=== PATIENT | female | born 1990 | race Caucasian/White ===

== ENCOUNTER → 2018-03-22 09:38 | Outpatient (CLI) | payer OTHER, SELFPAY ==
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
--- NOTE | 2018-03-22 10:50 | XR_ITS ---
XR foot wt bearing LT 3V, XR foot wt bearing RT 3V XR calcaneus LT min 2V, Ordering Physician: Estefania Kurtz Patient Age: 28 years: Female HISTORY: TECHNIQUE: Left foot 3 views weightbearing Right foot 3 views weightbearing Calcaneus 2 views COMPARISON :No previous ========= LEFT FOOT 3 VIEWS weightbearing, CALCANEUS 2 VIEWS The left foot reveals no definitive fracture. No displaced fracture appreciated at calcaneus Outside [facility] CT question possible fracture at the sustentaculum yomi but this is not clearly apparent on plain film... Only questionable area at the base of sustentaculum and at its tip seen on tangential view calcaneus. We will await outside studies from [facility] to compare Again the small os trigonum noted posterior aspect of talus. Scant spurring at insertion of Achilles tendon noted subtalar joint unremarkable on these views plain film views. IMPRESSION No displaced fractures are evident. Anatomical relationships. [facility] noted a suspect fracture at the sustentaculum yomi. This is not really apparent only question some subtle irregularity at its medial tip and posterior subtle line through base of sustentaculum yomi. Equivocal on plain film. Awaiting outside studies for comparison ======== RIGHT FOOT 3 VIEWS weightbearing The right foot appears fairly symmetrical to the left foot with metatarsals and carpals unremarkable. Adequate plantar ca arch bilateral there Slightly blunted flattened appearance of the distal tuft right great toe with a lucent corticated foramen towards the base the distal tuft. This may reflect old event trauma or congenital variation . IMPRESSION. No acute findings right foot. It appears intact =======
--- NOTE | 2018-03-22 10:51 | XR_ITS ---
XR foot wt bearing LT 3V, XR foot wt bearing RT 3V XR calcaneus LT min 2V, Ordering Physician: Estefania Kurtz Patient Age: 28 years: Female HISTORY: TECHNIQUE: Left foot 3 views weightbearing Right foot 3 views weightbearing Calcaneus 2 views COMPARISON :No previous ========= LEFT FOOT 3 VIEWS weightbearing, CALCANEUS 2 VIEWS The left foot reveals no definitive fracture. No displaced fracture appreciated at calcaneus Outside [facility] CT question possible fracture at the sustentaculum yomi but this is not clearly apparent on plain film... Only questionable area at the base of sustentaculum and at its tip seen on tangential view calcaneus. We will await outside studies from [facility] to compare Again the small os trigonum noted posterior aspect of talus. Scant spurring at insertion of Achilles tendon noted subtalar joint unremarkable on these views plain film views. IMPRESSION No displaced fractures are evident. Anatomical relationships. [facility] noted a suspect fracture at the sustentaculum yomi. This is not really apparent only question some subtle irregularity at its medial tip and posterior subtle line through base of sustentaculum yomi. Equivocal on plain film. Awaiting outside studies for comparison ======== RIGHT FOOT 3 VIEWS weightbearing The right foot appears fairly symmetrical to the left foot with metatarsals and carpals unremarkable. Adequate plantar ca arch bilateral there Slightly blunted flattened appearance of the distal tuft right great toe with a lucent corticated foramen towards the base the distal tuft. This may reflect old event trauma or congenital variation . IMPRESSION. No acute findings right foot. It appears intact =======
--- NOTE | 2018-03-22 10:51 | XR_ITS ---
XR foot wt bearing LT 3V, XR foot wt bearing RT 3V XR calcaneus LT min 2V, Ordering Physician: Estefania Kurtz Patient Age: 28 years: Female HISTORY: TECHNIQUE: Left foot 3 views weightbearing Right foot 3 views weightbearing Calcaneus 2 views COMPARISON :No previous ========= LEFT FOOT 3 VIEWS weightbearing, CALCANEUS 2 VIEWS The left foot reveals no definitive fracture. No displaced fracture appreciated at calcaneus Outside [facility] CT question possible fracture at the sustentaculum yomi but this is not clearly apparent on plain film... Only questionable area at the base of sustentaculum and at its tip seen on tangential view calcaneus. We will await outside studies from [facility] to compare Again the small os trigonum noted posterior aspect of talus. Scant spurring at insertion of Achilles tendon noted subtalar joint unremarkable on these views plain film views. IMPRESSION No displaced fractures are evident. Anatomical relationships. [facility] noted a suspect fracture at the sustentaculum yomi. This is not really apparent only question some subtle irregularity at its medial tip and posterior subtle line through base of sustentaculum yomi. Equivocal on plain film. Awaiting outside studies for comparison ======== RIGHT FOOT 3 VIEWS weightbearing The right foot appears fairly symmetrical to the left foot with metatarsals and carpals unremarkable. Adequate plantar ca arch bilateral there Slightly blunted flattened appearance of the distal tuft right great toe with a lucent corticated foramen towards the base the distal tuft. This may reflect old event trauma or congenital variation . IMPRESSION. No acute findings right foot. It appears intact =======
== END ==
PROVIDERS: PCP Internal Medicine Adolescent Medicine; Visit Provider Nurse Practitioner Family
DX: G89.11 Acute pain due to trauma (principal); S82.892D Other fracture of left lower leg, subsequent encounter for closed fracture with routine healing
CPT/HCPCS: 71101; 73030; 73610; 73630; 73650

== ENCOUNTER → 2018-04-06 08:31 | Outpatient (CLI) | payer OTHER, SELFPAY ==
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
== END ==
PROVIDERS: Visit Provider Podiatrist
DX: S82.892A Other fracture of left lower leg, initial encounter for closed fracture (principal); S92.002A Unspecified fracture of left calcaneus, initial encounter for closed fracture
CPT/HCPCS: 73610; 73650

== ENCOUNTER → 2018-04-27 08:19 | Outpatient (CLI) | payer OTHER, SELFPAY ==
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
== END ==
LOC: LAB 08:19 → RAD 08:24
PROVIDERS: Visit Provider Podiatrist
DX: T14.8XXA Other injury of unspecified body region, initial encounter (principal)
CPT/HCPCS: 73610; 73650

== ENCOUNTER 2018-05-14 08:30 | Outpatient (RCR) | payer OTHER, SELFPAY ==
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
== END 2018-05-14 08:31 | disposition home or self-care (01) ==
LOC: PT 08:30
PROVIDERS: Family Provider Internal Medicine Adolescent Medicine; PCP Internal Medicine Adolescent Medicine; Visit Provider Podiatrist
DX: S82.832D Other fracture of upper and lower end of left fibula, subsequent encounter for closed fracture with routine healing (principal)
CPT/HCPCS: 97010; 97014; 97016; 97110; 97140; 97163; G0283

== ENCOUNTER → 2018-07-05 09:01 | Outpatient (CLI) | payer OTHER, SELFPAY ==
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
== END ==
PROVIDERS: Family Provider Internal Medicine Adolescent Medicine; PCP Internal Medicine Adolescent Medicine; Visit Provider Podiatrist
DX: M25.572 Pain in left ankle and joints of left foot (principal)
CPT/HCPCS: 73223; A9576

== ENCOUNTER → 2018-07-09 10:46 | Outpatient (CLI) | payer OTHER, SELFPAY ==
[2018-07-09 10:48] LABS: Microscopic, Urine URINE MICROSCOPIC (MICROSCOPIC)
[2018-07-09 11:02] LABS: Appearance,Urine SL CLOUDY (Clear); Bilirubin,Urine Negative (Negative); Blood, Urine TRACE-L (Negative); Color,Urine YELLOW (Yellow); Glucose,Urine (UA) Negative (Negative); Ketones,Urine Negative (Negative); Leukocyte Esterase,Urine Negative (Negative); Nitrate,Urine Negative (Negative); Protein,Urine Negative (Negative); Specific Gravity, Urine 1.025 (1.005-1.030); Urobilinogen,Urine 0.2 EU/dl (0.2)
[2018-07-09 11:05] LABS: Urine Pregnancy, HCG Qual. Negative (Negative)
[2018-07-09 11:14] LABS: Basophils % 0.6 % (0.1-2.0); Eosinophils # 0.1 K/mm3 (0.0-0.4); Hematocrit 43.1 % (37.0-47.0); Hemoglobin 14.6 g/dL (12.2-16.2); Lymphocytes # 1.2 K/mm3 (0.7-4.5); Lymphocytes % 22.7 K/mm3 (10-50); Mean Corpuscular HGB Conc 33.9 g/dL (31.8-35.4); Mean Corpuscular Hemoglobin 29.5 pg (27.0-31.2); Mean Platelet Volume 8.2 fl (7.4-10.4); Monocytes # 0.3 K/mm3 (0.1-1.0); Monocytes % 5.6 % (1.7-9.3); Neutrophils # 3.8 K/mm3 (1.8-7.8); Platelet Count 255 K/mm3 (142-424); Red Blood Count 4.96 M/mm3 (4.20-5.40); Red Cell Distribution Width 12.6 % (11.5-17.5); White Blood Count 5.4 K/mm3 (4.8-10.8)
[2018-07-09 11:37] LABS: Bacteria,Urine Trace /lpf
[2018-07-09 12:51] LABS: Alanine Aminotransferase 20 U/L (12-78); Albumin Level 3.8 gm/dL (3.4-5.0); Albumin/Globulin Ratio 1.1 (1.1-1.8); Alkaline Phosphatase 69 U/L (46-116); Anion Gap 15.7 mEq/L (5-15); Aspartate Amino Transferase 12 U/L (15-37); Bilirubin,Total 0.2 mg/dL (0.2-1.0); Blood Urea Nitrogen 12 mg/dL (7-18); Calcium 9.2 mg/dL (8.5-10.1); Carbon Dioxide 25 mmol/L (21.0-32.0); Chloride 104 mmol/L (98-107); Creatinine,Serum 0.88 mg/dL (0.55-1.02); Estimated Glomerular Filt Rate 77 ml/min (>60); GFR (African American) 93 ML/MIN (>60); Globulin 3.6 gm/dl (1.3-3.2); Glucose 96 mg/dL (74-106); Potassium 4.7 mmoL/L (3.5-5.1); Sodium 140 mmol/L (136-145); Total Protein,Serum 7.4 gm/dL (6.4-8.2)
== END ==
PROVIDERS: Visit Provider Podiatrist
DX: Z01.818 Encounter for other preprocedural examination (principal); M25.372 Other instability, left ankle; M25.572 Pain in left ankle and joints of left foot; S93.432A Sprain of tibiofibular ligament of left ankle, initial encounter
CPT/HCPCS: 36415; 80053; 81001; 81025; 85025; 93005

== ENCOUNTER → 2018-07-27 08:52 | Outpatient (CLI) | payer OTHER, SELFPAY ==
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
== END ==
PROVIDERS: Visit Provider Podiatrist
DX: Z98.890 Other specified postprocedural states (principal)
CPT/HCPCS: 73610

== ENCOUNTER → 2018-08-10 12:03 | Outpatient (CLI) | payer OTHER, SELFPAY ==
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
== END ==
PROVIDERS: PCP Nurse Practitioner Family; Visit Provider Podiatrist
DX: Z98.890 Other specified postprocedural states (principal)
CPT/HCPCS: 73610

== ENCOUNTER → 2018-08-31 13:40 | Outpatient (CLI) | payer OTHER, SELFPAY ==
--- NOTE | 2018-08-31 13:41 | XR_ITS ---
XR ankle wt bearing LT min 3V HISTORY: Follow-up surgery ITS.REASON: Post-op views ORDERING PHYSICIAN: Hina Nunes DPM PATIENT AGE: 28 years Comparison: None FINDINGS: There remains good alignment with preservation of the ankle mortise. Bone plate along the distal fibula with translucent fixators to the medial aspect of the distal tibia once again noted. IMPRESSION: No change status post ORIF of tib-fib as described above
== END ==
PROVIDERS: Visit Provider Podiatrist
DX: Z98.890 Other specified postprocedural states (principal); S93.432A Sprain of tibiofibular ligament of left ankle, initial encounter
CPT/HCPCS: 73610

== ENCOUNTER 2018-10-11 10:30 | Outpatient (RCR) | payer OTHER, SELFPAY ==
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
--- NOTE | 2018-09-23 11:25 | HMH.RHREAS ---
Rehab Reassessment Rehab OP Re-assessment Start: 09/23/18 11:18 Freq: Status: Active Protocol: Document 09/23/18 11:22 ADELA (Rec: 09/23/18 11:25 PHOTAYA [id number]) Electronically Signed By Db Wise, PT 09/23/18 11:22 Rehab Re-assessment Subjective Subjective Pt reports feeling better overall, pain 1/10 currently and 5/10 at worst. Objective Objective Notes MMT: Left ankle grossly 4-/5 AROM Left ankle: DF= 0-5 deg, PF= 0-30 deg, INV= 0-20 deg, EVER= 0-8 deg. Assessment Progress Assessment Progressing as Expected Assessment Notes Much less tenderness to palpation, improving activity, stairs remain difficult, continues to need strengthening and AROM. Patient goals met ST,2,4,5,6,7,8 LT,4,5,6,7,8,9,10,[address] LT,2 Revised Goals none Plan Plan Continue per initial POC. Frequency of Therapy 2 x/wk Duration of therapy 8 wks Time and Billing Re-Eval Time 15 Re-Eval Billing Units 1 PHYSICIAN CERTIFICATION: I certify the specified therapy services for Jory Peguero are required, authorized, and reviewed every 30 days.
== END 2018-10-11 10:33 | disposition home or self-care (01) ==
LOC: PT 10:30
PROVIDERS: Visit Provider Podiatrist
DX: Z98.890 Other specified postprocedural states (principal); S93.432A Sprain of tibiofibular ligament of left ankle, initial encounter; M25.372 Other instability, left ankle; S93.422A Sprain of deltoid ligament of left ankle, initial encounter
CPT/HCPCS: 97010; 97014; 97016; 97033; 97035; 97110; 97112; 97163; 97164; G0283

== ENCOUNTER → 2018-10-12 13:50 | Outpatient (CLI) | payer OTHER, SELFPAY ==
--- NOTE | 2018-10-12 13:51 | XR_ITS ---
XR ankle wt bearing LT min 3V HISTORY: Follow-up surgery/ORIF ITS.REASON: post-op views ORDERING PHYSICIAN: Hina Nunes DPM PATIENT AGE: 28 years Comparison: 08/31/2018 FINDINGS: The talar dome has an unremarkable appearance. There remains good alignment with preservation of the ankle mortise. Bone plate along the distal fibula with translucent fixators to the medial aspect of the distal tibia once again noted. There is a cortical lucency involving the distal fibula having a round appearance and may be postsurgical in nature IMPRESSION: No change status post ORIF of tib-fib as described above with good alignment
== END ==
PROVIDERS: Visit Provider Podiatrist
DX: Z98.890 Other specified postprocedural states (principal)
CPT/HCPCS: 73610

== ENCOUNTER → 2020-01-03 15:52 | Outpatient (CLI) | payer OTHER, SELFPAY ==
--- NOTE | 2020-01-03 15:55 | XR_ITS ---
PROCEDURE: XR ANKLE WT BEARING LT MIN 3V CLINICAL INDICATION: ankle pain Left lateral ankle pain COMPARISON: [id number] XR ankle wt bearing LT min 3V from 07/27/2018 [id number] XR ankle wt bearing LT min 3V from 08/10/2018 [id number] XR ankle wt bearing LT min 3V from 08/31/2018 FINDINGS: Status post prior syndesmotic repair with lateral bone plate of the distal fibula and 2 translucent fixators to the distal tibia. Ankle mortise is preserved. No fracture or dislocation or other significant anomaly. IMPRESSION: Prior ORIF distal tib fib with good alignment otherwise negative Dictated by: Ari Obrien MD 01/03/2020 16:26 Electronically signed by Ari Obrien MD in [place] 01/03/2020 16:26
== END ==
PROVIDERS: PCP Nurse Practitioner Family; Visit Provider Podiatrist
DX: M25.572 Pain in left ankle and joints of left foot (principal)
CPT/HCPCS: 73610

== ENCOUNTER → 2020-05-01 10:51 | Outpatient (CLI) | payer OTHER, SELFPAY ==
[2020-05-01 12:10] LABS: HCG,Quantitative 1474 mIU/ml (0-5.42)
== END ==
PROVIDERS: Visit Provider Nurse Practitioner Obstetrics & Gynecology
DX: Z32.00 Encounter for pregnancy test, result unknown (principal)
CPT/HCPCS: 36415; 84702

== ENCOUNTER → 2020-05-16 09:07 | Outpatient (CLI) | payer OTHER, SELFPAY ==
--- NOTE | 2020-05-16 09:08 | US_ITS ---
PROCEDURE: US OB TRANSVAGINAL CLINICAL INDICATION: for dates COMPARISON: No exams were available for comparison FINDINGS: An intrauterine gestational sac is present with a pole with a crown-rump length of 0.88cm correlating to gestational age of 7weeks. heart tones are present with an FHR of 130bpm. Yolk sac is noted. Both ovaries display multiple small peripheral cortical cysts consistent with probable polycystic ovarian disease. The right ovary measures 39 millimeters x 32 millimeters x 37 millimeters. Left ovary measures 29 millimeters X 21 millimeters. There is a 15 millimeter right ovarian cystic lesion with peripheral hypervascularity noted. IMPRESSION: Seven week IUP, possible polycystic ovarian disease, right corpus luteum cyst Estimated due date by Ultrasound is 01/02/2021 Dictated by: Javed Rodriguez 05/16/2020 12:02 Electronically signed by Javed Rodriguez in [place] 05/16/2020 12:02
== END ==
PROVIDERS: PCP Internal Medicine Adolescent Medicine; Visit Provider Nurse Practitioner Obstetrics & Gynecology
DX: Z34.90 Encounter for supervision of normal pregnancy, unspecified, unspecified trimester (principal)
CPT/HCPCS: 76817

== ENCOUNTER → 2020-06-05 11:40 | Outpatient (CLI) | payer OTHER, SELFPAY ==
[2020-06-05 12:36] LABS: Basophils % 0.2 % (0.1-2.0); Eosinophils # 0.1 K/mm3 (0.0-0.4); Eosinophils % 0.8 % (0.1-12.0); Hematocrit 39.3 % (37.0-47.0); Hemoglobin 13.7 g/dL (12.2-16.2); Lymphocytes # 1.4 K/mm3 (0.7-4.5); Lymphocytes % 20.4 % (10-50); Mean Corpuscular HGB Conc 34.8 g/dL (31.8-35.4); Mean Corpuscular Hemoglobin 31.1 pg (27.0-31.2); Mean Corpuscular Volume 89.4 fl (81-99); Mean Platelet Volume 8.5 fl (7.4-10.4); Monocytes # 0.4 K/mm3 (0.1-1.0); Monocytes % 5.6 % (1.7-9.3); Neutrophils # 5.1 K/mm3 (1.8-7.8); Neutrophils % 73.1 % (37.0-80.0); Platelet Count 239 K/mm3 (142-424); Red Cell Distribution Width 13.2 % (11.5-17.5); White Blood Count 6.9 K/mm3 (4.8-10.8)
[2020-06-06 11:59] LABS: HIV Screen 4th Generation wRfx Non Reactive (Non Reactive)
[2020-06-06 15:27] LABS: Hepatitis B Surface Antigen Negative (Negative); Hepatitis C Antibody <0.1 s/co ratio (0.0-0.9); Rapid Plasma Reagin Ab Titer Non Reactive (NonRea<1:1)
[2020-06-07 08:37] LABS: Rubella Antibodies, IgG 2.16 index (Immune >0.99)
== END ==
PROVIDERS: Visit Provider Nurse Practitioner Obstetrics & Gynecology
DX: Z34.90 Encounter for supervision of normal pregnancy, unspecified, unspecified trimester (principal); Z3A.01 Less than 8 weeks gestation of pregnancy
CPT/HCPCS: 36415; 85025; 86592; 86703; 86762; 86850; 87340; 87380; G0432

== ENCOUNTER → 2020-08-16 08:48 | Outpatient (CLI) | payer OTHER, SELFPAY ==
--- NOTE | 2020-08-16 08:49 | US_ITS ---
PROCEDURE: US OB /MATERNAL DETAIL CLINICAL INDICATION: 20 week gestation Anatomy exam COMPARISON: US US OB TRANSVAGINAL from 05/16/2020 FINDINGS: There is a single live fetus which is in cephalic presentation. heart and body and motion noted. The cervix is closed and measures 3 cm. The placenta is anterior and grade 1 Complete survey performed and was unremarkable on the submitted images as in PACS. No discrete anomalies identified on survey imaging by technologist. Active fetus. Three-vessel cord with satisfactory umbilical cord insertion. 4- chamber heart noted. Survey of brain & ventricles Unremarkable. Face and neck survey unremarkable. Diaphragm and chest views unremarkable. Abdomen: Both kidneys noted and unremarkable. Stomach noted and satisfactory. Spine: Survey of the spine satisfactory with no anomalies identified nor imaged. Both arms and legs noted. Amniotic Fluid: Adequate. Maternal adnexa: No significant findings. Measurements: Average ultrasound age 20weeks 2days. Gestational Age 20weeks 1day Estimated due date by ultrasound age 0201/01/2021. Estimated weight 348g BPD = 20weeks OFD = 20weeks 6days HC = 19weeks 6days AC = 20weeks 3days FL = 20weeks 4days Growth Percentile= 57Percent% Heart Rate = 144bpm Cerebellum = 19weeks 6days Humerus = 20weeks 4days HC/AC is 1.13 CI is 0.74 FL/BPD is 0.73 FL/AC is 0.22 IMPRESSION: Live IUP in cephalic presentation with an average ultrasound age of 20 weeks and 2 days. No obvious anomalies. Please see above for detail Dictated by: Ari Obrien MD 08/18/2020 08:45 Ari Obrien MD in [place] 08/18/2020 08:45
== END ==
PROVIDERS: PCP Internal Medicine Adolescent Medicine; Visit Provider Nurse Practitioner Obstetrics & Gynecology
DX: Z34.90 Encounter for supervision of normal pregnancy, unspecified, unspecified trimester (principal); Z3A.20 20 weeks gestation of pregnancy
CPT/HCPCS: 76811

== ENCOUNTER → 2020-09-03 13:34 | Outpatient (CLI) | payer OTHER, SELFPAY ==
[2020-09-03 15:52] LABS: Coronavirus 19 IgG Antibody Negative (Negative); Coronavirus 19 IgM Antibody Negative (Negative)
== END ==
PROVIDERS: Visit Provider Nurse Practitioner Obstetrics & Gynecology
DX: Z03.818 Encounter for observation for suspected exposure to other biological agents ruled out (principal)
CPT/HCPCS: 36415; 86328

== ENCOUNTER 2020-09-16 13:06 | Outpatient (CLI) | payer OTHER, SELFPAY ==
[2020-09-16 13:15] VITALS: BMI 31.0
[2020-09-16 13:25] VITALS: BP 123/81; PULSE 96; RESP 18; TEMP 36.8; O2SAT 98; BMI 31.0
[2020-09-16 13:42] LABS: Microscopic, Urine URINE MICROSCOPIC (MICROSCOPIC)
[2020-09-16 13:44] LABS: Appearance,Urine CLEAR (Clear); Bilirubin,Urine Negative (Negative); Blood, Urine Negative (Negative); Color,Urine YELLOW (Yellow); Glucose,Urine (UA) Negative (Negative); Ketones,Urine Negative (Negative); Leukocyte Esterase,Urine Negative (Negative); Nitrate,Urine Negative (Negative); Protein,Urine Negative (Negative); Urobilinogen,Urine 0.2 EU/dl (0.2)
[2020-09-16 13:56] LABS: Barbiturates Screen,Urine Negative ng/ml (<200); Benzodiazepines Screen,Urine Negative ng/ml (<200)
[2020-09-16 13:57] LABS: Amphetamine/Metha Screen,Urine Negative ng/ml (<1000)
[2020-09-16 13:58] LABS: Cocaine Screen,Urine Negative ng/ml (<300); Methadone Screen,Urine Negative ng/ml (<300)
[2020-09-16 13:59] LABS: Bacteria,Urine 2+ /lpf; Cannabinoid Screen,Urine Negative ng/ml (<50); WBC,Urine Occasional #/hpf (0-3)
[2020-09-16 14:00] LABS: Opiate Screen,Urine Negative ng/ml (<300); Phencyclidine Screen,Urine Negative ng/ml (<25)
[2020-09-16 14:17] LABS: Basophils % 0.2 % (0.1-2.0); Eosinophils # 0.1 K/mm3 (0.0-0.4); Eosinophils % 0.7 % (0.1-12.0); Hematocrit 36.4 % (37.0-47.0); Hemoglobin 12.2 g/dL (12.2-16.2); Lymphocytes # 1.1 K/mm3 (0.7-4.5); Lymphocytes % 13.8 % (10-50); Mean Corpuscular HGB Conc 33.4 g/dL (31.8-35.4); Mean Corpuscular Hemoglobin 30.7 pg (27.0-31.2); Mean Platelet Volume 9.1 fl (7.4-10.4); Monocytes # 0.5 K/mm3 (0.1-1.0); Monocytes % 6.1 % (1.7-9.3); Neutrophils # 6.1 K/mm3 (1.8-7.8); Neutrophils % 79.2 % (37.0-80.0); Platelet Count 210 K/mm3 (142-424); Red Blood Count 3.96 M/mm3 (4.20-5.40); Red Cell Distribution Width 14.4 % (11.5-17.5); White Blood Count 7.7 K/mm3 (4.8-10.8)
[2020-09-16 14:22] LABS: Chloride 104 mmol/L (98-107); Sodium 135 mmol/L (136-145)
[2020-09-16 14:24] LABS: Alanine Aminotransferase 24 U/L (12-78); Aspartate Amino Transferase 23 U/L (14-36); Bilirubin,Total 0.2 mg/dl (0.2-1.3); Blood Urea Nitrogen 5 mg/dl (7-17); Creatinine Clearance Estimated 200 mL/min (50-200); Estimated Glomerular Filt Rate 117 ml/min (>60); GFR (African American) 142 ML/MIN (>60)
[2020-09-16 14:25] LABS: Albumin Level 3.6 g/dl (3.5-5.0); Albumin/Globulin Ratio 1.2 (1.1-1.8); Alkaline Phosphatase 57 U/L (38-126); Calcium 8.9 mg/dl (8.4-10.2); Carbon Dioxide 26 mmol/L (22.0-30.0); Globulin 2.9 g/dL (1.3-3.2); Glucose 86 mg/dl (74-100); Total Protein,Serum 6.5 g/dl (6.3-8.2)
== END 2020-09-16 14:34 | disposition home or self-care (01) ==
LOC: OBOUT 13:07 → OB 13:07
PROVIDERS: PCP Internal Medicine Adolescent Medicine; Referring Provider Nurse Practitioner Obstetrics & Gynecology; Visit Provider Obstetrics & Gynecology
DX: O26.892 Other specified pregnancy related conditions, second trimester (principal); Z3A.24 24 weeks gestation of pregnancy; R10.30 Lower abdominal pain, unspecified
CPT/HCPCS: 36415; 59025; 80053; 80305; 81001; 85025; 87086; G0463

== ENCOUNTER → 2020-10-09 07:28 | Outpatient (CLI) | payer OTHER, SELFPAY ==
[2020-10-09 08:04] LABS: Glucose,Fasting 96 mg/dl (74-100)
[2020-10-09 09:34] LABS: Glucose 1 Hour 150 mg/dL (74-100)
== END ==
PROVIDERS: Visit Provider Nurse Practitioner Obstetrics & Gynecology
DX: Z34.90 Encounter for supervision of normal pregnancy, unspecified, unspecified trimester (principal)
CPT/HCPCS: 36415; 82951

== ENCOUNTER → 2020-10-12 07:31 | Outpatient (CLI) | payer OTHER, SELFPAY ==
[2020-10-12 08:47] LABS: Glucose,Fasting 91 mg/dl (74-100)
[2020-10-12 10:11] LABS: Glucose 1 Hour 179 mg/dL (74-100)
[2020-10-12 12:02] LABS: Glucose 2 Hour 118 mg/dL (74-100)
[2020-10-12 12:03] LABS: Glucose 3 Hour 106 mg/dL (74-100)
== END ==
PROVIDERS: Visit Provider Nurse Practitioner Obstetrics & Gynecology
DX: Z34.90 Encounter for supervision of normal pregnancy, unspecified, unspecified trimester (principal)
CPT/HCPCS: 36415; 82951

== ENCOUNTER → 2020-10-25 13:40 | Outpatient (CLI) | payer OTHER, SELFPAY ==
[2020-10-25 13:49] LABS: Microscopic, Urine URINE MICROSCOPIC (MICROSCOPIC)
[2020-10-25 14:28] LABS: Appearance,Urine CLEAR (Clear); Bilirubin,Urine Negative (Negative); Blood, Urine Negative (Negative); Color,Urine YELLOW (Yellow); Glucose,Urine (UA) Negative (Negative); Ketones,Urine Negative (Negative); Leukocyte Esterase,Urine Negative (Negative); Nitrate,Urine Negative (Negative); Protein,Urine Negative (Negative); Specific Gravity, Urine 1.025 (1.005-1.030); Urobilinogen,Urine 0.2 EU/dl (0.2)
[2020-10-25 14:46] LABS: Bacteria,Urine Trace /lpf; Squamous Epithelial Cell,Urine Occasional #/hpf (0-5); WBC,Urine Occasional #/hpf (0-3); Yeast,Urine Occasional /lpf
== END ==
PROVIDERS: Visit Provider Nurse Practitioner Obstetrics & Gynecology
DX: Z34.90 Encounter for supervision of normal pregnancy, unspecified, unspecified trimester (principal)
CPT/HCPCS: 81001

== ENCOUNTER → 2020-12-06 09:34 | Outpatient (CLI) | payer OTHER, SELFPAY ==
[2020-12-06 10:24] LABS: Basophils % 0.3 % (0.1-2.0); Eosinophils # 0.1 K/mm3 (0.0-0.4); Eosinophils % 0.7 % (0.1-12.0); Hematocrit 39.8 % (37.0-47.0); Hemoglobin 13.3 g/dL (12.2-16.2); Lymphocytes # 1.3 K/mm3 (0.7-4.5); Lymphocytes % 14.3 % (10-50); Mean Corpuscular HGB Conc 33.5 g/dL (31.8-35.4); Mean Corpuscular Hemoglobin 30.5 pg (27.0-31.2); Mean Corpuscular Volume 91.1 fl (81-99); Mean Platelet Volume 8.7 fl (7.4-10.4); Monocytes # 0.6 K/mm3 (0.1-1.0); Monocytes % 6.5 % (1.7-9.3); Neutrophils # 7.2 K/mm3 (1.8-7.8); Neutrophils % 78.1 % (37.0-80.0); Platelet Count 221 K/mm3 (142-424); Red Blood Count 4.37 M/mm3 (4.20-5.40); White Blood Count 9.2 K/mm3 (4.8-10.8)
[2020-12-06 11:18] LABS: Activated Partial Thrombo Time 24.6 seconds (23.6-34.0); Fibrinogen 425 mg/dL (204-500); INR 0.93 (0.9-1.1); Prothrombin Time 10.4 seconds (9.4-11.8)
[2020-12-06 12:31] LABS: Alanine Aminotransferase 15 U/L (12-78); Anion Gap 12.1 mEq/L (5-15); Aspartate Amino Transferase 23 U/L (14-36); Blood Urea Nitrogen 3 mg/dl (7-17); Calcium 9.3 mg/dl (8.4-10.2); Carbon Dioxide 23 mmol/L (22.0-30.0); Chloride 102 mmol/L (98-107); Estimated Glomerular Filt Rate 117 ml/min (>60); GFR (African American) 142 ML/MIN (>60); Glucose 87 mg/dl (74-100); Potassium 4.1 mmoL/L (3.5-5.1); Sodium 133 mmol/L (136-145); Uric Acid 4.4 mg/dl (2.5-6.2)
== END ==
PROVIDERS: Visit Provider Nurse Practitioner Obstetrics & Gynecology
DX: Z34.90 Encounter for supervision of normal pregnancy, unspecified, unspecified trimester (principal)
CPT/HCPCS: 36415; 80048; 82106; 84450; 84460; 84550; 85025; 85378; 85384; 85610; 85730

== ENCOUNTER → 2020-12-06 15:57 | Outpatient (CLI) | payer OTHER, SELFPAY | PROVIDERS: Visit Provider Nurse Practitioner Obstetrics & Gynecology | DX: Z34.90 Encounter for supervision of normal pregnancy, unspecified, unspecified trimester (principal) | CPT/HCPCS: 86403 ==

== ENCOUNTER → 2020-12-08 12:31 | Outpatient (CLI) | payer OTHER, SELFPAY ==
[2020-12-08 17:01] LABS: Collection Time,Urine 24 hours; Creatinine 24 Hour,Urine 1702 mg/24hr (630-2500); Creatinine,Urine Random 92 mg/dL (Not Estab.); Total Protein 24 Hour,Urine 185 mg/24 hr (40-90); Total Volume,Urine 1850 mL (600-1600)
== END ==
PROVIDERS: Visit Provider Nurse Practitioner Obstetrics & Gynecology
DX: Z34.90 Encounter for supervision of normal pregnancy, unspecified, unspecified trimester (principal)
CPT/HCPCS: 82570; 84155

== ENCOUNTER → 2020-12-11 13:09 | Outpatient (CLI) | payer OTHER, SELFPAY ==
--- NOTE | 2020-12-11 13:22 | US_ITS ---
PROCEDURE: US OB BIOPHYSICAL PROFILE CLINICAL INDICATION: hypertension in / SGA TECHNIQUE: FINDINGS: The following parameters are obtained: Average ultrasound age is Average 36weeks 4days Estimated due date by ultrasound is 01/04/2021. Estimated weight is 2,985g. This is 49th percentile BPD: 37 weeks 0 days OFD: 35 weeks 4 days HC: 35 weeks 5 days AC: 37 weeks 0 days FL: 36 weeks 2 days heart rate: 149bpm bpm. HC/AC: 0.96 Cephalic index: 0.83 FL/BPD: 0.78 FL/AC: 0.21 Amniotic fluid index: 10.26cm Qualitative AFV: 2 breathing movements: 2 Gross body movements: 2 Tone: 2 Biophysical profile score: 8 No obvious anomalies evident. Single live fetus is present in cephalic presentation. Placenta: Cervix: Anterior and grade 2 IMPRESSION: Single live fetus which is in cephalic presentation with an average ultrasound age of 36 weeks 4 days and estimated weight of 2985 g which is 49th percentile. JULIETH 10 cm. Biophysical profile 8 of 8 Dictated by: Ari Obrien MD 12/11/2020 14:42 Ari Obrien MD in [place] 12/11/2020 14:42
== END ==
PROVIDERS: PCP Nurse Practitioner Family; Visit Provider Nurse Practitioner Obstetrics & Gynecology
DX: O16.3 Unspecified maternal hypertension, third trimester (principal); O36.5990 Maternal care for other known or suspected poor fetal growth, unspecified trimester, not applicable or unspecified
CPT/HCPCS: 76811; 76816; 76819

== ENCOUNTER 2020-12-26 06:36 | Inpatient (IN) | payer OTHER, SELFPAY ==
[2020-12-26 05:03] VITALS: BP 116/82; PULSE 95; RESP 18; TEMP 36.8; O2SAT 96; BMI 33.3
[2020-12-26 05:04] VITALS: BMI 33.3
[2020-12-26 05:57] LABS: Microscopic, Urine URINE MICROSCOPIC (MICROSCOPIC)
[2020-12-26 06:01] LABS: Basophils % 0.3 % (0.1-2.0); Eosinophils # 0.1 K/mm3 (0.0-0.4); Eosinophils % 1.3 % (0.1-12.0); Hematocrit 37.2 % (37.0-47.0); Hemoglobin 12.6 g/dL (12.2-16.2); Lymphocytes # 1.7 K/mm3 (0.7-4.5); Lymphocytes % 18.1 % (10-50); Mean Corpuscular Hemoglobin 30.3 pg (27.0-31.2); Mean Corpuscular Volume 89.3 fl (81-99); Mean Platelet Volume 9.2 fl (7.4-10.4); Monocytes # 0.6 K/mm3 (0.1-1.0); Monocytes % 6.6 % (1.7-9.3); Neutrophils % 73.7 % (37.0-80.0); Platelet Count 208 K/mm3 (142-424); Red Blood Count 4.17 M/mm3 (4.20-5.40); Red Cell Distribution Width 15.2 % (11.5-17.5); White Blood Count 9.5 K/mm3 (4.8-10.8)
[2020-12-26 06:08] LABS: Appearance,Urine CLEAR (Clear); Bilirubin,Urine Negative (Negative); Blood, Urine Negative (Negative); Color,Urine YELLOW (Yellow); Glucose,Urine (UA) Negative (Negative); Ketones,Urine Negative (Negative); Leukocyte Esterase,Urine Negative (Negative); Nitrate,Urine Negative (Negative); PH,Urine 6.5 (5.0-8.5); Protein,Urine Negative (Negative); Specific Gravity, Urine 1.025 (1.005-1.030)
[2020-12-26 06:32] LABS: Barbiturates Screen,Urine Negative ng/ml (<200); Benzodiazepines Screen,Urine Negative ng/ml (<200)
[2020-12-26 06:33] LABS: Amphetamine/Metha Screen,Urine Negative ng/ml (<1000)
[2020-12-26 06:34] LABS: Cannabinoid Screen,Urine Negative ng/ml (<50); Cocaine Screen,Urine Negative ng/ml (<300)
[2020-12-26 06:35] LABS: Methadone Screen,Urine Negative ng/ml (<300)
[2020-12-26 06:36] LABS: Opiate Screen,Urine Negative ng/ml (<300); Phencyclidine Screen,Urine Negative ng/ml (<25)
[2020-12-26 06:39] LABS: Coronavirus 19 IgG Antibody Negative (Negative); Coronavirus 19 IgM Antibody Negative (Negative)
[2020-12-26 08:38] VITALS: BP 113/70; PULSE 83; RESP 18; TEMP 36.8; O2SAT 99
--- NOTE | 2020-12-26 08:54 | HMH.OBAPHP ---
OB - H&P: HPI Antepartum - History of Present Illness Chief complaint: Term , pressure, occasional contractions History of present illness: She is a 30-year-old 1 now para 0 at 39 weeks gestational age. She has been feeling pressure and contractions and as result of that we elected to induce her labor at term. - History of Present Criteria for establishing EDC:: LMP confirmed by 1st trimester US care: good care Ultrasounds: normal 1st trimester US, normal mid trimester US Obstetrical complications: none Medical complications: none - Labs Blood type: O (+) positive Rubella: immune RPR/VDRL: nonreactive GBS status: negative HBsAG: negative HMH History I have reviewed the patient's past medical history: Yes Medical History: Reports:: Anxiety Denies:: Asthma, Cancer, Chronic Obstructive Pulmonary Disease (COPD), Diabetes Mellitus Type 1, Diabetes Mellitus Type 2, Hyperlipidemia, Hypertension, MRSA, Seizures *Have you ever received a pneumonia vaccine?: No *Have you received a flu vaccine this season?: Yes Other Medical History: Denies: Blood Transfusion Reaction Laterality Cases: Right: Other Other Surgeries: Yes: No Previous Surgery, Appendectomy. 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 Review of Systems - Review of Systems Review of systems:: pertinent systems reviewed and negative unless documented below Meds Home Medications Medication Instructions Recorded Confirmed Type vits 75-iron 28 mg-folic 1 tab PO DAILY 06/12/20 12/26/20 History acid 800 mcg-omega-3 oral combo pack Allergies Allergy/AdvReac Type Severity Reaction Status Date / Time No Known Allergies Allergy Verified 12/24/20 10:21 OB - H&P: Exam - Physical Exam Vital signs: Temp Pulse Resp BP Pulse Ox 98.2 F 95 H 18 116/82 96 12/26/20 05:03 12/26/20 05:03 12/26/20 05:03 12/26/20 05:03 12/26/20 05:03 - Constitutional no acute distress - Routine HEENT Exam Head: Present: normocephalic Eye: Present: EOMI, PERRL ENT: Present: mucous membranes moist - Routine Neck Exam Present: supple, full ROM - Routine Respiratory Exam Absent: accessory muscle use (good air entry bilaterally), respiratory distress, wheezes, crackles - Routine Cardiovascular Exam Present: RRR. Absent: murmur - Routine Abdominal Exam Present: soft, normoactive bowel sounds. Absent: tenderness, distended, guarding - Routine Rectal Exam Patient deferred: visual exam, digital exam - Routine Exam Patient deferred: external exam, groin exam, perineal exam - Routine Extremities Exam Present: full ROM. Absent: cyanosis, edema - Routine Skin Exam Present: intact. Absent: cyanosis - Routine Neurological Exam Present: alert, oriented X3 - Routine Psychiatric Exam Present: normal affect OB - Results - Labs Labs: Short CBC 12/26/20 Range/Units 05:35 WBC 9.5 (4.8-10.8) K/mm3 Hgb 12.6 (12.2-16.2) g/dL Hct 37.2 (37.0-47.0) % Plt Count 208 (142-424) K/mm3 Urine 12/26/20 Range/Units 05:35 Urine Color Yellow (Yellow) Urine Appearance Clear (Clear) Urine pH 6.5 (5.0-8.5) Ur Specific Parrish 1.025 (1.005-1.030) Urine Protein Negative (Negative) Urine Glucose (UA) Negative (Negative) OB - A/P Antepartum (1) Normal delivery Status: Acute - Additional Plan Planning to breastfeed?: Yes Plan: induction Additional Information:: She is 2 cm 50% Station -2 and I have rupture
--- NOTE | 2020-12-26 08:56 | HMH.LABNOT ---
Labor Note - Subjective: Date: 12/26/20 Time: 08:56 regular contraction - Objective: NST:: Reactive Contractions:: every 2-3 minutes Cervical Dilation:: 2 Effacement:: 50% Station: -2 Membranes: artificially ruptured Comment:: I have ruptured her membranes and there was clear fluid. I inserted an IUPC. Nonstress test is reactive. - Fetus: Monitoring?: Yes - Assessment: Labor progressing?: Yes Cephalopelvic disproportion?: No Patient Problems: All Active Problems Normal delivery (Acute) (Acute) - Plan: Anesthesia for epidural?: No Continue to labor down?: Yes Plan for ?: No Continue to monitor?: Yes Start pushing?: No
--- NOTE | 2020-12-26 11:17 | P.PN_ITS ---
[facility] Anesthesia Checklist - Structural Data Admitted From: Home Planned Operative Procedure/s: labor epidural Consent for Planned Operative Procedure(s) Verified: Yes - Additional verifications Anesthesia Reactions: No Hx Blood Transfusions: No Blood Transfusion Reaction: No - Airway Assessment C-Spine Mobility Assessed: Yes TMJ Mobility Assessed: Yes Dentition: Good Dentition - Neurological Assessment Level of Consciousness: Awake, Alert, Appropriate - Anesthesia Plan Anesthesia Risk discussed: Yes Anesthesia Plan: Verified ASA Class: II Anesthesia Type: Epidural [facility] History I have reviewed the patient's past medical history: Yes Medical History: Reports:: Anxiety Denies:: Asthma, Cancer, Chronic Obstructive Pulmonary Disease (COPD), Diabetes Mellitus Type 1, Diabetes Mellitus Type 2, Hyperlipidemia, Hypertension, MRSA, Seizures *Have you ever received a pneumonia vaccine?: No *Have you received a flu vaccine this season?: Yes Other Medical History: Denies: Blood Transfusion Reaction Anesthesia experience/problems:: none Laterality Cases: Right: Other Other Surgeries: Yes: No Previous Surgery, Appendectomy. 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
--- NOTE | 2020-12-26 11:33 | HMH.LABNOT ---
Labor Note - Subjective: Date: 12/26/20 Time: 11:15 regular contraction - Objective: NST:: Reactive Contractions:: every 2-3 minutes Cervical Dilation:: 4 Station: -2 - Fetus: Monitoring?: Yes monitoring type:: Internal and External - Assessment: Labor progressing?: Yes Cephalopelvic disproportion?: No Patient Problems: All Active Problems Normal delivery (Acute) (Acute) - Plan: Anesthesia for epidural?: Yes Continue to labor down?: Yes Plan for ?: No Continue to monitor?: Yes Start pushing?: No Comment:: She continues to do well. She is having regular contractions. She has changed her cervix to 4 cm. She now has an epidural. She has an IUPC.
[2020-12-26 12:00] VITALS: BP 100/57; PULSE 94; RESP 18; TEMP 36.6; O2SAT 99
--- NOTE | 2020-12-26 13:53 | HMH.LABNOT ---
Labor Note - Subjective: Date: 12/26/20 Time: 13:53 regular contraction - Objective: Contractions:: every 2-3 minutes Cervical Dilation:: 4-5 Station: 0 Membranes: artificially ruptured - Fetus: Monitoring?: Yes monitoring type:: Internal Comment:: I inserted a scalp clip. - Assessment: Labor progressing?: Yes Cephalopelvic disproportion?: No Patient Problems: All Active Problems Normal delivery (Acute) (Acute) - Plan: Anesthesia for epidural?: Yes Continue to labor down?: Yes Plan for ?: No Continue to monitor?: Yes Start pushing?: No Comment:: Contractions are every 2 to 3 minutes. Her nonstress test is reactive. I did insert an IUPC as well as a scalp clip. We will expect a vaginal delivery. The baby's head is come down really well.
--- NOTE | 2020-12-26 15:18 | HMH.LABNOT ---
Labor Note - Subjective: Date: 12/26/20 Time: 15:18 regular contraction - Objective: NST:: Reactive Contractions:: every 2-3 minutes Cervical Dilation:: 5 Effacement:: 100% Station: 0 Membranes: artificially ruptured - Fetus: monitoring type:: Internal - Assessment: Labor progressing?: Yes Cephalopelvic disproportion?: No Patient Problems: All Active Problems Normal delivery (Acute) (Acute) - Plan: Anesthesia for epidural?: Yes Continue to labor down?: Yes Plan for ?: No Continue to monitor?: Yes Start pushing?: No Comment:: She continues to do well. The baby's head is down well. The cervix is thinned out to 100%. We will continue to labor down.
[2020-12-26 15:55] VITALS: BP 124/75; PULSE 83; RESP 18; TEMP 36.7; O2SAT 97
--- NOTE | 2020-12-26 17:28 | HMH.LABNOT ---
Labor Note - Subjective: Date: 12/26/20 Time: 17:28 regular contraction - Objective: NST:: Reactive Contractions:: every 2-3 minutes Cervical Dilation:: 8-9 Effacement:: 100% Station: +1 Membranes: artificially ruptured - Fetus: Monitoring?: Yes monitoring type:: Internal - Assessment: Labor progressing?: Yes Cephalopelvic disproportion?: No Patient Problems: All Active Problems Normal delivery (Acute) (Acute) - Plan: Anesthesia for epidural?: Yes Continue to labor down?: Yes Plan for ?: No Continue to monitor?: Yes Start pushing?: No Comment:: Baby's head is well down. There is some molding. She is 8 to 9 cm. We will let the head come down a little longer and then get her to start pushing when she is fully dilated. Nonstress test is reactive. Contractions are every 2 to 3 minutes.
--- NOTE | 2020-12-26 20:19 | HMH.DN ---
- Delivery Note Delivery Date:: 12/26/20 Delivery Time:: 20:01 Anesthesia Type: Epidural Was labor medically induced?: Yes Induction method: per pitocin protocol Gestational age (weeks): 39 Infant delivered prior to 39 weeks?: No Infant Gender: Female at 1 minute: 8 at 5 minutes: 9 LAC or MLE?: LAC Delivery Procedure:: She is a 30-year-old 1 now para 0 at 39+ weeks gestational age. She was having pressure and discomfort so we elected to bring her in for delivery. She was found to be 2 cm dilated. She was started on IV oxytocin had her membranes ruptured. Under labor epidural she progressed to full dilation and delivered spontaneously a liveborn female child at 8:01 PM in the evening of December 26, 2019. On deliver the head the anterior shoulder then delivered followed by the rest infant's body atraumatically. The oropharynx and nasopharynx were bulb suction. The baby cried spontaneously. The baby was vigorous so we allowed the cord to continue to pulsate for approximately 1 minute. The cord is then doubly clamped and cut and the infant was placed on the mother's abdomen for further care. The nurse assigned Apgars of 8 at 1 minute and 9 at 5 minutes. We then obtained cord blood as well as cord pH. She received IV oxytocin and using gentle traction on the cord and countertraction on the fundus I was able to easily deliver the placenta intact at 8:05 PM.. It had a normal three-vessel cord. She had a second-degree perineal laceration that was repaired with 3-0 Vicryl Rapide suture to the superficial tissues of the vagina and 2-0 Vicryl suture to the deep tissues of the perineum as well as subcuticular on the perineum. She has O+ blood, she is rubella immune and was group B streptococcus negative. Her cable inspector is Dr. Lemus. Estimated blood loss was approximately 300 cc. Laceration:: vaginal, labial Placental Delivery Description: Spontaneous
[2020-12-26 20:28] LABS: Cord Blood PH 7.34 (7.35-7.45)
[2020-12-27 06:41] LABS: Hemoglobin 10.8 g/dL (12.2-16.2)
--- NOTE | 2020-12-27 09:15 | HMH.ACPN2 ---
Internal Medicine - PN: Subj *Date: 12/27/20 *Time: 09:15 Interval history: She is 1 day from a vaginal delivery. She is doing well. She is eating and drinking and ambulating. She is breast-feeding. Her lochia is normal. Her pain is well controlled. Exam Vital signs and Labs for Last 24 Hours: Temp Pulse Resp BP Pulse Ox 98.0 F 83 18 124/75 97 12/26/20 15:55 12/26/20 15:55 12/26/20 15:55 12/26/20 15:55 12/26/20 15:55 Laboratory Results - last 24 hr 12/26/20 20:21: Cord ABG pH 7.34 L 12/27/20 06:18: Hgb 10.8 L, Hct 32.0 L I & O for Last 24 hours: Intake & Output 12/24/20 12/25/20 12/26/20 12/27/20 11:59 11:59 11:59 11:59 Weight 219 lb - Constitutional no acute distress - *Routine HEENT Exam Head: Present: normocephalic Eye: Present: EOMI, PERRL ENT: Present: mucous membranes moist Assessment and Plan (1) Normal delivery Status: Acute Category: Medical Code(s): O80 - Encounter for full-term uncomplicated delivery - Assessment and plan all Dx Assessment and Plan for all problems:: She is doing very well . She will be discharged home tomorrow.
--- NOTE | 2020-12-27 09:16 | HMH.DCSUM ---
General - General Admission date:: 12/26/20 Discharge date: 12/28/20 HPI HPI: She is a 30-year-old 1 now para 1 at 39 weeks gestational age. She was having pressure and discomfort and as result of that we elected to induce her labor at term. Hospital Course Hospital Course: She was started on IV oxytocin had her membranes ruptured. Under labor epidural she progressed to full dilation and delivered spontaneously a liveborn female child at 8:01 PM in the evening of December 26, 2020. The baby weighed 7 pounds 9 ounces and was 18-1/2 inches long. She had Apgars of 8 at 1 minute and 9 at 5 minutes. She has done well and has remained afebrile throughout her hospitalization. She is eating and drinking and ambulating. She is breast-feeding. Her lochia is normal. She is discharged home to follow-up with me in approximately 2 weeks time. She will continue with her vitamins and iron. She has O Rh+ blood, she is rubella immune and was group B streptococcus negative. 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 She was given the usual instructions with respect to limiting her activity, driving and sexual activity. Her condition on discharge is stable and improved Objective Vital signs: Temp Pulse Resp BP Pulse Ox 98.0 F 83 18 124/75 97 12/26/20 15:55 12/26/20 15:55 12/26/20 15:55 12/26/20 15:55 12/26/20 15:55 no acute distress - *Routine HEENT Exam Head: Present: normocephalic Eye: Present: EOMI, PERRL ENT: Present: mucous membranes moist Results Labs on day of discharge: Labs from last 24 hours 12/27/20 12/26/20 06:18 20:21 Hgb 10.8 L Hct 32.0 L Cord ABG pH 7.34 L DS: Diagnosis - Discharge Diagnosis (1) Normal delivery Status: Acute Discharge Plan - Patient Discharge Instructions ACTIVITY: No heavy lifting DIET: continue same diet - Follow up Plan Disposition: Home, Self-Jail Medications: Home Medications Medication Instructions Recorded Confirmed Type vits 75-iron 28 mg-folic 1 tab PO DAILY 06/12/20 12/26/20 History acid 800 mcg-omega-3 oral combo pack Prescriptions/Medication Reconciliation: Continued vits 75-iron 28 mg-folic acid 800 mcg-omega-3 oral combo pack 1 tab PO DAILY - Problem Reconciliation Problems Reviewed?: Yes
[2020-12-27 16:10] VITALS: BP 127/67; PULSE 81; RESP 20; TEMP 36.7; O2SAT 99
[2020-12-28 08:00] VITALS: BP 126/59; PULSE 84; RESP 20; TEMP 36.8; O2SAT 98
--- NOTE | 2020-12-28 13:34 | HMH.ACPN2 ---
Internal Medicine - PN: Subj *Date: 12/28/20 *Time: 13:34 Interval history: PPD #2 vaginal delivery no unusual complaints discharge planned for today ambulating and voiding without difficulty lochia appropriate Exam Vital signs and Labs for Last 24 Hours: Temp Pulse Resp BP Pulse Ox 98.1 F 81 20 127/67 99 12/27/20 16:10 12/27/20 16:10 12/27/20 16:10 12/27/20 16:10 12/27/20 16:10 I & O for Last 24 hours: Intake & Output 12/26/20 12/27/20 12/28/20 12/29/20 11:59 11:59 11:59 11:59 Weight 219 lb Narrative: CONSTITUTIONAL: no acute distress HEENT: mucous membranes moist PULMONARY: breathing unlabored without audible wheezes CV: no tachycardia or visible JVD; normal LE peripheral pulses ABD: soft, NT/ND, no guarding : fundus firm at/below umbilicus SKIN: no visible rash or lesions EXT: 1+ edema LEs NEURO: alert/oriented, no altered mental status PSYCH: appropriate mood and demeanor without visible anxiety/depression Assessment and Plan (1) Normal delivery Status: Acute Category: Medical Code(s): O80 - Encounter for full-term uncomplicated delivery - Assessment and plan all Dx Assessment and Plan for all problems:: routine care discharge home per arrangements made by Dr Herrera
== END 2020-12-28 12:42 | disposition home or self-care (01) | DRG 807 ==
LOC: OBOUT 06:37 → OB 06:37
PROVIDERS: Obstetrics & Gynecology; Admitting Provider Nurse Practitioner Obstetrics & Gynecology; PCP Internal Medicine Adolescent Medicine; Visit Provider Nurse Practitioner Obstetrics & Gynecology
DX: O70.1 Second degree perineal laceration during delivery (principal); Z37.0 Single live birth; Z3A.39 39 weeks gestation of pregnancy
CPT/HCPCS: 59409; 59025; 80305; 81001; 82800; 85014; 85018; 85025; 86328; 86850; 94761; C1758; G0283

== ENCOUNTER → 2021-10-01 12:00 | Outpatient (CLI) | payer OTHER, SELFPAY ==
[2021-10-01 12:15] LABS: Influenza A, PCR Not Detected (NotDetected); Influenza B, PCR Not Detected (NotDetected)
[2021-10-01 13:02] LABS: Coronavirus 19, PCR Detected (NotDetected)
== END ==
PROVIDERS: PCP Nurse Practitioner Family; Visit Provider Nurse Practitioner
DX: Z20.822 Contact with and (suspected) exposure to COVID-19 (principal); U07.1 COVID-19
CPT/HCPCS: C9803; U0003; U0005

== ENCOUNTER → 2022-06-17 06:25 | Outpatient (CLI) | payer OTHER, SELFPAY ==
[2022-06-17 09:03] LABS: Basophils % 0.8 % (0.1-2.0); Eosinophils # 0.1 K/mm3 (0.0-0.4); Eosinophils % 1.9 % (0.1-12.0); Hematocrit 40.8 % (37.0-47.0); Hemoglobin 13.8 g/dL (12.2-16.2); Lymphocytes # 1.5 K/mm3 (0.7-4.5); Lymphocytes % 33.3 % (10-50); Mean Corpuscular HGB Conc 33.9 g/dL (31.8-35.4); Mean Corpuscular Hemoglobin 29.5 pg (27.0-31.2); Mean Corpuscular Volume 86.8 fl (81-99); Mean Platelet Volume 8.7 fl (7.4-10.4); Monocytes # 0.3 K/mm3 (0.1-1.0); Monocytes % 7.4 % (1.7-9.3); Neutrophils # 2.6 K/mm3 (1.8-7.8); Neutrophils % 56.7 % (37.0-80.0); Platelet Count 221 K/mm3 (142-424); Red Blood Count 4.69 M/mm3 (4.20-5.40); Red Cell Distribution Width 12.5 % (11.5-17.5); White Blood Count 4.6 K/mm3 (4.8-10.8)
--- NOTE | 2022-06-17 09:14 | US_ITS ---
FINAL REPORT TECHNIQUE: Sonographic images of the thyroid gland were obtained in the longitudinal and transverse planes. CLINICAL HISTORY: THYROID NODULE FINDINGS: The right lobe measures 4.9 x 1.9 x 1.2 cm. there is a mixed cystic and solid nodule in the mid right thyroid measuring 1.3 cm. There is a questionable solid 1 cm nodule also in the lower pole. The left lobe measures 5.0 x 1.8 x 1.2 cm. there are several colloid cysts in the left lobe of the thyroid. The isthmus measures 4 mm which is normal. The gland is homogeneous. The surrounding soft tissues are normal. Color imaging of the gland is within normal limits. IMPRESSION: TI-RADS 3 right thyroid nodule. No current follow-up recommendations based on size criteria. Questionable TI-RADS 4 right thyroid nodule versus normal parenchyma. Consider 6 month follow-up. Reviewed, Interpreted and Dictated by Yamileth Henderson MD Transcribed by Vince Cabrera Authenticated and [facility]
[2022-06-17 09:39] LABS: Alanine Aminotransferase 13 U/L (12-78); Albumin Level 3.8 g/dl (3.5-5.0); Albumin/Globulin Ratio 1.4 (1.1-1.8); Alkaline Phosphatase 71 U/L (38-126); Anion Gap 10.5 mEq/L (5-15); Aspartate Amino Transferase 20 U/L (14-36); Blood Urea Nitrogen 10 mg/dl (7-17); Calcium 8.7 mg/dl (8.4-10.2); Carbon Dioxide 24 mmol/L (22.0-30.0); Chloride 108 mmol/L (98-107); Chol/HDL Ratio 5.4 (1-3.5); Cholesterol 207 mg/dl (140-200); Estimated Glomerular Filt Rate 73 ml/min (>60); GFR (African American) 88 ML/MIN (>60); Globulin 2.7 g/dL (1.3-3.2); Glucose 88 mg/dl (74-100); HDL Cholesterol 38 mg/dl (40-60); Potassium 4.5 mmoL/L (3.5-5.1); Sodium 138 mmol/L (136-145); Total Protein,Serum 6.5 g/dl (6.3-8.2)
[2022-06-17 09:44] LABS: Bilirubin,Total < 0.1 mg/dl (0.2-1.3); Triglycerides 421 mg/dl (30-150)
[2022-06-17 09:50] LABS: Direct LDL Cholesterol 81.43 mg/dL (100-129)
[2022-06-17 09:56] LABS: 25-OH Vitamin D, Total 45.3 ng/mL (30-100)
[2022-06-17 10:08] LABS: Thyroid Stimulating Hormone 1.49 uIU/mL (0.465-4.68)
[2022-06-17 10:27] LABS: Vitamin B12 219 pg/mL (239-931)
== END ==
PROVIDERS: PCP Nurse Practitioner Family; Visit Provider Nurse Practitioner Family
DX: E04.1 Nontoxic single thyroid nodule (principal); R53.81 Other malaise; E78.1 Pure hyperglyceridemia; E66.3 Overweight; Z68.30 Body mass index [BMI] 30.0-30.9, adult
CPT/HCPCS: 36415; 76536; 80053; 80061; 82306; 82607; 84443; 85025

== ENCOUNTER → 2022-12-30 09:34 | Outpatient (CLI) | payer OTHER, SELFPAY ==
--- NOTE | 2022-12-30 09:38 | US_ITS ---
FINAL REPORT CLINICAL HISTORY: THYROID NODULE COMPARISON: May 2022 FINDINGS: THYROID ULTRASOUND The right lobe of the thyroid measures 4.5 x 2.0 x 1.1 cm. The left lobe of the thyroid measures 4.5 x 1.3 x 0.6 cm. The parenchyma shows normal echogenicity. There are multiple right thyroid nodules. Largest right thyroid nodule measures 1.0 cm consistent with TI-RADS 3 and is similar to the prior exam. A 2nd right thyroid nodule measuring 0.8 cm consistent with a TI-RADS 4 is also similar to the prior exam. There are benign-appearing cysts in the left lobe of the thyroid. IMPRESSION: Multiple right thyroid nodules, essentially stable from the prior exam. Reviewed, Interpreted and Dictated by Quincy Damon MD Transcribed by Vince Cabrera Authenticated and [facility]
== END ==
PROVIDERS: PCP Nurse Practitioner Family; Visit Provider Nurse Practitioner Family
DX: E04.1 Nontoxic single thyroid nodule (principal)
CPT/HCPCS: 76536

== ENCOUNTER → 2023-02-24 09:49 | Outpatient (CLI) | payer OTHER, SELFPAY ==
--- NOTE | 2023-02-24 09:58 | CT_ITS ---
FINAL REPORT TECHNIQUE: After the administration of oral and intravenous contrast, axial images were obtained through the abdomen and pelvis by computed tomography. The study was performed with techniques to keep radiation dose as low as reasonably achievable, (ALARA). Individual dose reduction techniques using automated exposure control or adjustment of mA and/or kV according to the patient's size were employed. CLINICAL HISTORY: LOWER ABD PAIN FINDINGS: Abdomen: The lung bases are clear. The liver parenchyma is homogeneous. The gallbladder is mildly distended. The spleen measures at the upper limits of normal in size. The pancreas, adrenals and kidneys appear unremarkable. The aorta is normal in caliber. There is no acute inflammatory process. There is no free fluid or adenopathy. Pelvis: The appendix is not identified and may be surgically absent. The uterus is present and lies midline. The urinary bladder is unremarkable. No acute inflammatory process is seen. There is no free fluid or adenopathy. IMPRESSION: Borderline splenomegaly. No acute intra-abdominal process. Reviewed, Interpreted and Dictated by Quincy Damon MD Transcribed by Ranjana Guallpa Authenticated and [facility]
[2023-02-24 10:11] LABS: Chloride 105 mmol/L (98-107); Potassium 4.2 mmoL/L (3.5-5.1); Sodium 133 mmol/L (136-145)
[2023-02-24 10:13] LABS: Blood Urea Nitrogen 9 mg/dl (7-17)
[2023-02-24 10:14] LABS: Alanine Aminotransferase 23 U/L (12-78); Albumin Level 4.4 g/dl (3.5-5.0); Albumin/Globulin Ratio 1.5 (1.1-1.8); Alkaline Phosphatase 74 U/L (38-126); Anion Gap 12.2 mEq/L (5-15); Aspartate Amino Transferase 26 U/L (14-36); Basophils # 0.1 K/mm3 (0-0.2); Basophils % 0.5 % (0.1-2.0); Bilirubin,Total 0.5 mg/dl (0.2-1.3); Carbon Dioxide 20 mmol/L (22.0-30.0); Cholesterol 227 mg/dl (140-200); Eosinophils # 0.1 K/mm3 (0.0-0.4); Eosinophils % 1.3 % (0.1-12.0); Estimated Glomerular Filt Rate 83 ml/min (>60); GFR (African American) 100 ML/MIN (>60); Hematocrit 43.1 % (37.0-47.0); Hemoglobin 13.9 g/dL (12.2-16.2); Lymphocytes # 1.4 K/mm3 (0.7-4.5); Lymphocytes % 14.6 % (10-50); Mean Corpuscular HGB Conc 32.3 g/dL (31.8-35.4); Mean Corpuscular Hemoglobin 28.5 pg (27.0-31.2); Mean Corpuscular Volume 88.2 fl (81-99); Mean Platelet Volume 7.5 fl (7.4-10.4); Monocytes # 0.4 K/mm3 (0.1-1.0); Monocytes % 4.1 % (1.7-9.3); Neutrophils # 7.6 K/mm3 (1.8-7.8); Neutrophils % 79.5 % (37.0-80.0); Platelet Count 277 K/mm3 (142-424); Red Blood Count 4.89 M/mm3 (4.20-5.40); Red Cell Distribution Width 13.6 % (11.5-17.5); Total Protein,Serum 7.4 g/dl (6.3-8.2); Triglycerides 320 mg/dl (30-150); VLDL Cholesterol 64 mg/dL (0-40); White Blood Count 9.6 K/mm3 (4.8-10.8)
[2023-02-24 10:15] LABS: Calcium 8.4 mg/dl (8.4-10.2); Glucose 105 mg/dl (74-100)
[2023-02-24 10:26] LABS: Direct LDL Cholesterol 114.37 mg/dL (100-129)
[2023-02-24 10:45] LABS: Thyroid Stimulating Hormone 1.34 uIU/mL (0.465-4.68)
[2023-02-24 11:22] LABS: Vitamin B12 347 pg/mL (239-931)
[2023-02-24 11:46] LABS: Hemoglobin A1C 4.8 % (4.0-6.0)
[2023-02-24 13:11] LABS: Chol/HDL Ratio 4.7 (1-3.5); HDL Cholesterol 48 mg/dl (40-60)
== END ==
PROVIDERS: PCP Nurse Practitioner Family; Visit Provider Nurse Practitioner Family
DX: Z00.00 Encounter for general adult medical examination without abnormal findings (principal); R10.30 Lower abdominal pain, unspecified; R53.83 Other fatigue; R73.9 Hyperglycemia, unspecified; E53.8 Deficiency of other specified B group vitamins
CPT/HCPCS: 36415; 74177; 80053; 80061; 82607; 83036; 84443; 85025; Q9967

== ENCOUNTER 2023-07-15 14:55 | Emergency (ER) | payer OTHER, SELFPAY ==
[2023-07-15 15:00] VITALS: BP 116/80; PULSE 72; RESP 18; TEMP 36.7; O2SAT 100; BMI 31.8
[2023-07-15 15:17] VITALS: BP 116/80; PULSE 72; RESP 18; TEMP 36.7; O2SAT 100
--- NOTE | 2023-07-15 15:18 | EXP.UTC ---
Discharge Plan Disposition Patient Disposition: Home, Self-Care Condition: Good Prescriptions Prescriptions: New cyclobenzaprine 10 mg tablet 10 mg PO TID PRN (Reason: muscle spasm) Qty: 15 0RF methylprednisolone [Medrol (Julian)] 4 mg tablets,dose pack See Rx Instructions .Route .COMPLEX 6 Days Qty: 21 0RF Rx Instructions: taper pack; etodolac 200 mg capsule 200 mg PO Q8H PRN (Reason: pain) Qty: 20 0RF No Action One A Day Women's DHA 28 mg iron- 800 mcg combo pack 1 tab PO DAILY sertraline 50 mg tablet 50 mg PO DAILY norgestimate-ethinyl estradiol [Sprintec (28)] 0.25-35 mg-mcg tablet 1 tab PO DAILY Qty: 84 3RF fluconazole [Diflucan] 150 mg tablet 150 mg PO ONCE Qty: 1 0RF Referrals Follow up/Referrals: Lawanda Parkinson APRN [Primary Care Provider] - See instructions Activity Restrictions/Add. Instructions Additional Instructions/Restrictions: *Etodolac yuliana 8 hours with meal as needed for pain/inflammation *Remember you had a Toradol shot in the clinic today, which is similar to Etodolac dont start until after 11pm tonight *Not additional anti-inflammatory like Ibuprofen, motrin, aleve, advil with the above amount of Etodolac. You can still take Tylenol every 4 hours as needed if you need something else for pain *Ice 20 minutes every 2 hours for the first 48 hours after the initial injury followed by moist heat every 20 minutes 3-4 times a day to affected area *Muscle relaxer every 8 hours as needed for muscle spasms but remember, it WILL cause drowsiness You cannot take it and drive, operate machinery or care for small children. *Keep this area active, no movement leads to more stiffness, However take it easy and avoid heavy lifting pushing or pulling *Follow up with you family doctor if no improvement for further treatment Start oral steriods tomorrow Clinical Impressions Clinical Impression: Lower back pain Qualifiers: Chronicity: unspecified Back pain laterality: midline Sciatica presence: without sciatica Qualified Code(s): M54.50 - Low back pain, unspecified Instructions Patient Instructions: Low Back Pain, Cyclobenzaprine, Etodolac Discharge ED Provider: Shanelle Rodriguez [facility] [place] General Stated complaint: back pain, no accident Mode of Arrival: Ambulatory Source of Information: Patient Limitations: No Limitations Time Seen by Provider: 07/15/23 15:18 Description of Symptoms (Recalled from Triage Doc. by RN): PATIENT C/O LOWER BACK PAIN SINCE THURSDAY HEENT Symptoms (Recalled from RN notes): No Resp Symptoms (Recalled from RN notes): No Skin Symptoms (Recalled from RN notes): No MS Symptoms (Recalled from RN notes): Yes Functional Status (Recalled from RN notes): WNL History of Present Illness Provider Complaint: Patient states that she was at the [employer] over the weekend and done alot of strenuous movement and felt something pull in her lower back area States that she took it easy for a couple days and it was feeling better but this am she bent over and again felt something pull in her lower back and has been having achy like spasms ever since so she came in to get something to help Denies loss of control of bowel or bladder Related Data Home Medications Medication Instructions Recorded Confirmed vits 75-iron 28 mg-folic 1 tab PO DAILY Supplement 06/12/20 12/16/22 acid 800 mcg-omega-3 oral combo pack (One A Day Women's DHA) sertraline 50 mg tablet 50 mg PO DAILY 12/16/22 12/16/22 Previous Rx's Medication Instructions Recorded norgestimate 0.25 mg-ethinyl 1 tab PO DAILY #84 tabs 12/16/22 estradiol 35 mcg tablet (Sprintec (28)) fluconazole 150 mg tablet 150 mg PO ONCE #1 tab 01/07/23 (Diflucan) cyclobenzaprine 10 mg tablet 10 mg PO TID PRN muscle spasm #15 07/15/23 tabs etodolac 200 mg capsule 200 mg PO Q8H PRN pain #20 caps 07/15/23 methylprednisolone 4 mg tablets in See Rx Instructions .Route 07/15/23
== END 2023-07-15 16:07 | disposition home or self-care (01) ==
PROVIDERS: Emergency Provider Nurse Practitioner; PCP Nurse Practitioner Family
DX: M54.50 Low back pain, unspecified (principal); X50.0XXA Overexertion from strenuous movement or load, initial encounter
CPT/HCPCS: 96372; 99204; 99212; G0463

== ENCOUNTER 2023-08-11 17:49 | Emergency (ER) | payer OTHER, SELFPAY ==
--- NOTE | 2023-08-11 18:48 | EXP.UTC ---
Discharge Plan Disposition Patient Disposition: Home, Self-Care Condition: Good Prescriptions Prescriptions: New azithromycin [Zithromax] 250 mg tablet 250 mg PO UD DOSE PK Qty: 6 0RF Rx Instructions: Take two (2) tablets today, then one (1) tablet days #2 thru #5 methylprednisolone 4 mg Tablets,Dose Pack 4 mg PO DIRECTED Qty: 21 0RF yjrdtzdlgboyyfb-kjofgtiwk-BO [Bromfed DM] 2-30-10 mg/5 mL Syrup 5 ml PO Q6H PRN (Reason: Cough) Qty: 240 0RF No Action One A Day Women's DHA 28 mg iron- 800 mcg combo pack 1 tab PO DAILY sertraline 50 mg tablet 50 mg PO DAILY norgestimate-ethinyl estradiol [Sprintec (28)] 0.25-35 mg-mcg tablet 1 tab PO DAILY Qty: 84 3RF fluconazole [Diflucan] 150 mg tablet 150 mg PO ONCE Qty: 1 0RF cyclobenzaprine 10 mg tablet 10 mg PO TID PRN (Reason: muscle spasm) Qty: 15 0RF methylprednisolone [Medrol (Julian)] 4 mg tablets,dose pack See Rx Instructions .Route .COMPLEX 6 Days Qty: 21 0RF Rx Instructions: taper pack; etodolac 200 mg capsule 200 mg PO Q8H PRN (Reason: pain) Qty: 20 0RF Referrals Follow up/Referrals: Lawanda Parkinson APRN [Primary Care Provider] - See instructions Activity Restrictions/Add. Instructions Additional Instructions/Restrictions: Drink plenty of fluids. Take tylenol or ibuprofen for pain or fever. Take the medications as directed. Follow up with your regular doctor. GO TO THE ER FOR ANY WORSENING SYMPTOMS Clinical Impressions Clinical Impression: Sinusitis Stand Alone Forms Stand Alone Forms: Work/School Release Instructions Patient Instructions: DI for Sinusitis Discharge ED Provider: Yamil Meeks [facility] General Stated complaint: cough Time Seen by Provider: 08/11/23 18:48 History of Present Illness Provider Complaint: She states that for the past 4 days she has had sore throat, body aches, sinus congestion and low grade fever. Related Data Home Medications Medication Instructions Recorded Confirmed vits 75-iron 28 mg-folic 1 tab PO DAILY Supplement 06/12/20 12/16/22 acid 800 mcg-omega-3 oral combo pack (One A Day Women's DHA) sertraline 50 mg tablet 50 mg PO DAILY 12/16/22 12/16/22 Previous Rx's Medication Instructions Recorded norgestimate 0.25 mg-ethinyl 1 tab PO DAILY #84 tabs 12/16/22 estradiol 35 mcg tablet (Sprintec (28)) fluconazole 150 mg tablet 150 mg PO ONCE #1 tab 01/07/23 (Diflucan) cyclobenzaprine 10 mg tablet 10 mg PO TID PRN muscle spasm #15 07/15/23 tabs etodolac 200 mg capsule 200 mg PO Q8H PRN pain #20 caps 07/15/23 methylprednisolone 4 mg tablets in See Rx Instructions .Route 07/15/23 a dose pack (Medrol (Julian)) .COMPLEX 6 days #21 tabs azithromycin 250 mg tablet 250 mg PO UD DOSE PK #6 tabs 08/11/23 (Zithromax) vceaolyfmdicqjg-bzpndofbgaavxbi-OS 5 ml PO Q6H PRN Cough #240 mL 08/11/23 2 mg-30 mg-10 mg/5 mL oral syrup (Bromfed DM) methylprednisolone 4 mg tablets in 4 mg PO DIRECTED #21 tabs 08/11/23 a dose pack Allergies Allergy/AdvReac Type Severity Reaction Status Date / Time No Known Allergies Allergy Verified 12/16/22 15:13 [facility] Disclaimer: The information contained in this section may have been updated after the patient was seen, as this information can be updated by other users. Medical History (Updated 08/11/23 @ 19:31 by Yamil Meeks APRN) History of fracture of left ankle Surgical History History of appendectomy Family History (Updated 12/16/22 @ 15:15 by Zoey Kimbrough CMA) Other Coronary artery disease Heart attack Hyperlipidemia Social History Smoking Status: Never smoker second hand exposure: No alcohol intake: never substance use type: denies use current occupational status: employed Travel in the last 8 weeks: None
[2023-08-11 19:20] VITALS: BP 133/87; PULSE 73; RESP 18; TEMP 36.8; O2SAT 100; BMI 29.7
[2023-08-11 19:33] VITALS: BP 133/87; PULSE 73; RESP 16; TEMP 36.8; O2SAT 98
== END 2023-08-11 19:36 | disposition home or self-care (01) ==
PROVIDERS: Emergency Provider Nurse Practitioner Family; PCP Nurse Practitioner Family
DX: J01.90 Acute sinusitis, unspecified (principal); J02.9 Acute pharyngitis, unspecified
CPT/HCPCS: 99212; 99214; G0463

== ENCOUNTER 2023-12-02 11:13 | Outpatient (CLI) | payer OTHER, SELFPAY ==
--- NOTE | 2023-12-02 12:23 | XR_ITS ---
FINAL REPORT CLINICAL HISTORY: ACUTE BILATERAL LOW BACK PAIN WITH RT SIDED SCIATICA COMPARISON: None FINDINGS: 5 views of the lumbar spine were obtained. There is no evidence of fracture or dislocation. The vertebral alignment is normal. Disc spaces are preserved. No paraspinous soft tissue abnormalities identified. IMPRESSION: No acute bony abnormality. Reviewed, Interpreted and Dictated by Tahir Fisher III, MD Transcribed by Kristina Romero Authenticated and . [facility]
== END 2023-12-02 23:59 ==
LOC: RAD 11:14
PROVIDERS: PCP Nurse Practitioner Family; Visit Provider Nurse Practitioner Family
DX: M54.41 Lumbago with sciatica, right side (principal)
CPT/HCPCS: 72110

== ENCOUNTER 2024-01-14 15:00 | Outpatient (RCR) | payer OTHER, SELFPAY ==
--- NOTE | 2023-12-15 14:11 | HMH.PTOPEV ---
PT Outpatient Evaluation Rehab PT Outpatient Evaluation Start: 12/15/23 13:26 Freq: Status: Active Protocol: Document 12/15/23 13:26 ZULEIMA (Rec: 12/15/23 14:11 ZULEIMA [id number]) E-signed By Giovanni Winston, PT Outpatient Therapy Subjective History Subjective History Pt reports insidious onset LBP beginning ~2 months ago. Pt reports referred pain into right hip (lateral) and anterior thigh to knee level intermittently. Pt reports LBP 'seems to start at midline and then iqra of radiates out to each side.' Pt reports some heavy lifting avoidance behavior with episode of LBP. New diagnosis of cancer in past 12 No months? Chief Complaint Pain,Stiff,Paresthesia Symptom Type Ache,Sharp,Dull,Numbness Symptoms Relieved By Rest/Positioning,Heat, Prescription Meds Symptoms Aggravated By Bending/Stooping,Lifting Prior Functional Limitations None Current Functional Limitations Lifting,Housework,Standing, Walking,Bending/Stooping Symptom Description Constant but Variable Level of pain today (0-10) 4 Pain scale - at its best (0-10) 3 Pain scale - at its worst (0-10) 7 Lumbopelvic Eval Posture Thoracic Spine Posture Standing Position Neutral Lumbar Spine Posture Standing Position Neutral Assistive device Assistive Devices None / NA Gait Observation General Gait Pattern Observation No Deviations/Normal Palapation tenderness left lumbar spinal tenderness Yes: 1/4 paraspinal tenderness Yes: 1/4 buttock tenderness Yes: 0-1/4 Lumbar/Sacral Palpation Findings Tenderness right lumbar spinal tenderness Yes: 2/4 paraspinal tenderness Yes: 3/4 buttock tenderness Yes: 2-3/4 Lumbar/Sacral Palpation Findings Tenderness,Trigger Point, Muscle Guarding Accessory Movement L-spine Vertebrae Accessory Movements Central P/A Dyer that Elicit Symptoms L4 right L5 right Range of Motion Lumbar Spine Active Flexion Range of 0-40 Motion (degrees) Lumbar Spine Active Extension Range of 0-15 Motion (degrees) Left Lumbar Spine Lateral Flexion Active 0-25 Range of Motion (degrees) Right Lumbar Spine Lateral Flexion 0-25 Active Range of Motion (degrees) Lumbar Spine ROM Limitations Soft Tissue Tightness,Pain Manual Muscle Test Left Knee Extension Strength Grade 5 Normal Knee Flexion Strength Grade 5 Normal Hip Flexion Strength Grade 5 Normal Extensor Hallucis Longus Strength Grade 5 Normal Ankle Dorsiflexion Strength Grade 5 Normal Gastronemius/Soleus Strength Grade 5 Normal Right Knee Extension Strength Grade 5 Normal Knee Flexion Strength Grade 5 Normal Hip Flexion Strength Grade 4- Good- Extensor Hallucis Longus Strength Grade 5 Normal Ankle Dorsiflexion Strength Grade 5 Normal Gastronemius/Soleus Strength Grade 5 Normal Special Tests Hip Piriformis Test Negative Left,Negative Right Sciatic Nerve Tension Test Negative Left,Positive Right Reverse Sciatic Nerve Tension Test Negative Left,Negative Right Lumbar Long Maspeth Distraction Test/Manual Positive Traction Oswestry Index Section 1 Pain Intensity The pain comes and goes and is moderate Section 2 Personal Care (Washing,Dresing) my way of washing or dressing even though it causes some pain Section 3 Lifting I can lift heavy weights, but it gives me extra pain Section 4 Walking I have some pain when walking but it does not increase with distance Section 5 Sitting Pain prevents me from sitting for more than one hour Section 6 Standing I have some pain on standing, but it does not increase with time Section 7 Sleeping I get pain in bed, but it does not prevent me from sleeping well Section 8 Social Life My social life is normal and gives me no extra pain Section 9 Traveling I get extra pain while traveling, but it does not compel me to seek al Section 10 Changing Degreee of Pain My pain is neither getting better or worse Score and Risk Level Oswestry Sc 14 Oswestry Risk Level Mild Disability Outpatient Therapy Assessment Impairments Problems/Impairmments Palpation Tenderness,Impaired Range of Motion,Impaired Strength,Impaired Walking, Impaired Standing,Impaired Lifting,Impaired Household Care,Impaired Work Activities, Subjective C/O Pain,Impaired Self Care/Self Management Prognosis Rehab Potential Good Clinical Impression Consistent with Diagnosis Yes Short Term Goals Number of Weeks 4 Decreased Palpation Tenderness Yes: 1-2/4 lumbar paraspinals Increase Range of Motion Yes: 75% OF WFL LUMBAR AROM Increase Strength Yes: 4/5 RIGHT LE MM Increase Ability to Walk Yes: 30MIN Increase Ability to Stand Yes: 30MIN Restore Ability to Lift Objects to Waist Yes: 20# Level Improve Oswestry Score Yes: 10-12 Decrease Subjective C/O Pain Yes: 3-4/10 W/ABOVE ACTIVITIES Patient to be Ind w/ HEP Yes 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 Number of Weeks 6-8 Decreased Palpation Tenderness Yes: 0-1/4 LUMBAR PARASPINALS Increase Range of Motion Yes: WFL LUMBAR AROM Increase Strength Yes: WFL B/L LE MM Increase Ability to Walk Yes: 60MIN Increase Ability to Stand Yes: 60MIN Restore Ability to Lift Objects to Waist Yes: 40# Level Improve Ability For Household Care Yes: WFL Improve Tolerance to Work Activities Yes: WFL Improve Oswestry Score Yes: 6-8 Decrease Subjective C/O Pain Yes: 0-2/10 W/ABOVE ACTIVITIES Patient to be Ind w/ Advanced HEP Yes Outpatient Therapy Plan of Care Treatment Plan May Include Therapeutic Exercise Including Home Yes Exercise Program Manual Therapy Techniques Yes Neuromuscular Re-education Yes Therapeutic Activities to Return to Yes Previous Functional/Work Level ADL/Self Care Education Yes Mechanical Traction Yes Dry Needling Yes Thermal Modalities Yes Electrical Stimulation Yes Ultrasound/Phonophoresis Yes Eval/Re-Eval Yes Frequency Times per week 2-3 Duration Number of Weeks 6-8 Addendums This patient is a candidate for social No or vocational rehab? Patient/Guardian verbally acknowledges Yes understanding of treatment program and consents to further treatment? Patient/Guardian verbally acknowledges Yes understanding of diagnosis, prognosis and goals for treatment? Eval Complexity PT Charges 51690 - Low Complexity Shoulder/Elbow Eval Shoulder Objective Measurements Elbow Objective Measurements PHYSICIAN CERTIFICATION: I certify the specified therapy services for Jory Peguero are required, authorized, and reviewed every 30 days.
--- NOTE | 2024-01-14 15:39 | HMH.RHREAS ---
Rehab Reassessment Rehab OP Re-assessment Start: 12/15/23 13:26 Freq: Status: Active Protocol: Document 01/14/24 15:33 ZULEIMA (Rec: 01/14/24 15:39 ZULEIMA [id number]) E-signed By Giovanni Winston, PT Rehab Re-assessment Subjective Subjective Pt reports 0/10 LBP on VAS over the last 1-2weeks and reports no radicular s/s in RLE. Objective Objective Notes AROM LUMBAR FLX 0-65, EXT 0-25 , B/L SB 0-30 MMT: RIGHT HIP FLX 5/5, R KNEE EXT 5/5, R KNEE FLX 5/5 TTP: LUMBAR PARASPINALS RIGHT 0/4, RIGHT GLUT MM 0/4 Assessment Progress Assessment Progressing as Expected Assessment Notes SIGNIFICANT IMPROVEMENTS IN ROM, STRENGTH, AND TTP Patient goals met STG'S 07/01 (OSWESTRY NOT COLLECTED) LTG'S 07/03 Goals Not Met STG'S 12/01, LTG'S 01/31 Plan Plan Pt to continue w/skilled P.T. to make further improvements in oswestry functional score, AROM, and any remaining high level functional goals to achieve optimal functional outcome Frequency of Therapy 1-2x/wk Duration of therapy 2-4wks Time and Billing Re-Eval Time 12 Re-Eval Billing Units 1 PHYSICIAN CERTIFICATION: I certify the specified therapy services for Jory Peguero are required, authorized, and reviewed every 30 days.
== END 2024-01-14 16:30 | disposition home or self-care (01) ==
LOC: PT 15:00
PROVIDERS: Visit Provider Nurse Practitioner Family
DX: M54.41 Lumbago with sciatica, right side (principal)
CPT/HCPCS: 97010; 97012; 97014; 97110; 97163; 97164; G0283

== ENCOUNTER 2024-02-02 14:08 | Outpatient (CLI) | payer OTHER, SELFPAY ==
--- NOTE | 2024-02-02 14:18 | MR_ITS ---
FINAL REPORT CLINICAL HISTORY: BILAT LOW BACK PAIN. severe right leg pain FINDINGS: Multiplanar MR imaging of the lumbar spine was performed without contrast. On the sagittal T2-weighted images, disc degeneration is seen at L5-S1. The vertebral alignment is normal. There is no evidence of fracture. No bony mass is identified. The conus is seen at approximately the L1 level and has an unremarkable appearance. T11-12: Unremarkable. T12-L1: Unremarkable. L1-2: There is no significant canal stenosis or neural foraminal narrowing. L2-3: There is no significant canal stenosis or neural foraminal narrowing. L3-4: There is no significant canal stenosis or neural foraminal narrowing. L4-5: There is no significant canal stenosis or neural foraminal narrowing. L5-S1: Right paracentral disc protrusion which mildly indents the thecal sac. There is mild right neuroforaminal narrowing. IMPRESSION: Right paracentral disc protrusion L5-S1 with mild indention of the thecal sac and mild right neuroforaminal narrowing. Reviewed, Interpreted and Dictated by Tahir Fisher III, MD Transcribed by Indira Horton Authenticated and . [facility]
== END 2024-02-02 23:59 ==
LOC: RAD 14:09
PROVIDERS: PCP Nurse Practitioner Family; Visit Provider Nurse Practitioner Family
DX: M54.51 Vertebrogenic low back pain (principal)
CPT/HCPCS: 72148; 76376

== ENCOUNTER 2024-02-03 06:54 | Outpatient (CLI) | payer OTHER, SELFPAY ==
[2024-02-03 07:20] LABS: Basophils # 0.1 K/mm3 (0-0.2); Basophils % 1.1 % (0.1-2.0); Eosinophils # 0.1 K/mm3 (0.0-0.4); Eosinophils % 1.4 % (0.1-12.0); Hematocrit 41.1 % (37.0-47.0); Hemoglobin 14.2 g/dL (12.2-16.2); Lymphocytes # 1.2 K/mm3 (0.7-4.5); Mean Corpuscular HGB Conc 34.5 g/dL (31.8-35.4); Mean Corpuscular Hemoglobin 30.9 pg (27.0-31.2); Mean Corpuscular Volume 89.5 fl (81-99); Mean Platelet Volume 8.8 fl (7.4-10.4); Monocytes # 0.3 K/mm3 (0.1-1.0); Monocytes % 6.6 % (1.7-9.3); Neutrophils # 3.3 K/mm3 (1.8-7.8); Neutrophils % 65.9 % (37.0-80.0); Platelet Count 234 K/mm3 (142-424); Red Blood Count 4.59 M/mm3 (4.20-5.40); Red Cell Distribution Width 13.5 % (11.5-17.5)
[2024-02-03 07:59] LABS: Alanine Aminotransferase 17 U/L (12-78); Albumin Level 4.2 g/dl (3.5-5.0); Albumin/Globulin Ratio 1.6 (1.1-1.8); Alkaline Phosphatase 59 U/L (38-126); Anion Gap 9.4 mEq/L (5-15); Aspartate Amino Transferase 26 U/L (14-36); Bilirubin,Total 0.6 mg/dl (0.2-1.3); Blood Urea Nitrogen 13 mg/dl (7-17); Carbon Dioxide 26 mmol/L (22.0-30.0); Chloride 105 mmol/L (98-107); Chol/HDL Ratio 5.2 (1-3.5); Cholesterol 235 mg/dl (140-200); Estimated Glomerular Filt Rate 83 ml/min (>60); GFR (African American) 100 ML/MIN (>60); Globulin 2.7 g/dL (1.3-3.2); Glucose 98 mg/dl (74-100); HDL Cholesterol 45 mg/dl (40-60); Potassium 4.4 mmoL/L (3.5-5.1); Sodium 136 mmol/L (136-145); Total Protein,Serum 6.9 g/dl (6.3-8.2); Triglycerides 245 mg/dl (30-150); VLDL Cholesterol 49 mg/dL (0-40)
[2024-02-03 08:11] LABS: Direct LDL Cholesterol 117.05 mg/dL (100-129)
[2024-02-03 08:17] LABS: 25-OH Vitamin D, Total 29.7 ng/mL (30-100)
[2024-02-03 08:30] LABS: Thyroid Stimulating Hormone 1.69 uIU/mL (0.465-4.68)
[2024-02-03 08:49] LABS: Vitamin B12 305 pg/mL (239-931)
[2024-02-03 11:05] LABS: Hemoglobin A1C 4.8 % (4.0-6.0)
== END 2024-02-03 23:59 ==
LOC: LAB 06:55
PROVIDERS: PCP Nurse Practitioner Family; Visit Provider Nurse Practitioner Family
DX: R53.81 Other malaise (principal); E66.9 Obesity, unspecified; Z68.30 Body mass index [BMI] 30.0-30.9, adult; Z79.899 Other long term (current) drug therapy
CPT/HCPCS: 36415; 80053; 80061; 82306; 82533; 82607; 83036; 84443; 85025

== ENCOUNTER 2024-02-16 12:55 | Day surgery (SDC) | payer OTHER, SELFPAY ==
[2024-02-16 13:12] VITALS: BP 145/90; PULSE 80; RESP 18; TEMP 36.7; O2SAT 99; BMI 30.5
[2024-02-16 13:30] VITALS: BP 145/90; PULSE 80; RESP 16; O2SAT 99
[2024-02-16 13:38] VITALS: BP 126/84; PULSE 81; RESP 20
--- NOTE | 2024-02-16 13:40 | EXP.PAIN.PRO ---
Procedure Date: 02/16/24 Time: 13:35 Anesthesiologist:: Domo Randall CRNA Complications:: None Pre-procedure Diagnosis:: Degenerative disc lumbar spine multilevels. Disc bulge L5-S1. Lumbar radiculopathy Post-procedure Diagnosis:: Same. Indications for Procedure:: Patient is a very pleasant 34-year-old female comes our clinic today for right-sided intralaminar L5-S1 epidural steroid injection. Patient had recent consultation with spine surgery at [facility] Dr. Strauss. He recommends the injection at this level. Patient will follow-up with spine surgery for further consultation if needed. Patient reports low back pain as well as right leg hip and leg pain. Procedure Details:: Procedure: Lumbar epidural steroid injection under fluoroscopy Informed consent was obtained and the risks and benefits of the procedure were explained to the patient. The patient was taken to the procedure room and noninvasive monitors placed, including noninvasive blood pressure cuff and pulse oximeter. The back was viewed using C-arm Fluoroscopy and prepped using Chloraprep as a cleansing solution and the L4-L5 interspace was palpated. Skin and subcutaneous tissues were anesthetized using lidocaine 1.5% and a 25-gauge needle. After this, an 18-gauge Touhy epidural needle was placed into the L4-L5 interspace and advanced using fluoroscopic guidance and loss of resistance to air until the epidural space was encountered. After confirmation of needle placement in the epidural space, with dye, a solution containing normal saline, 3 mL and Depo-Medrol 80 mg were incrementally injected into the lumbar epidural space. The patient tolerated the procedure well with no complications. The patient was observed in the Pain Clinic and then discharged home neurologically intact. Plan and Disposition:: Patient was discharged without incident.
== END 2024-02-16 13:30 | disposition home or self-care (01) ==
PROVIDERS: PCP Nurse Practitioner Family; Visit Provider Nurse Anesthetist, Certified Registered
DX: M51.16 Intervertebral disc disorders with radiculopathy, lumbar region (principal); M51.26 Other intervertebral disc displacement, lumbar region
CPT/HCPCS: 62323

== ENCOUNTER 2024-02-19 08:25 | Outpatient (CLI) | payer OTHER, SELFPAY | END 2024-02-19 23:59 | LOC: LAB 08:26 | PROVIDERS: PCP Nurse Practitioner Family; Visit Provider Nurse Practitioner Family | DX: R79.89 Other specified abnormal findings of blood chemistry (principal) | CPT/HCPCS: 36415; 82533 ==

== ENCOUNTER 2024-09-21 07:00 | Outpatient (CLI) | payer OTHER, SELFPAY ==
--- NOTE | 2024-09-21 07:01 | US_ITS ---
PROCEDURE: US TRANSVAGINAL CLINICAL INDICATION: pelvic pain, IUD placement COMPARISON: CT CT ABDOMEN PELVIS W CON from 02/24/2023 FINDINGS: Transvaginal sonographic images of the pelvis were obtained. UTERUS: 7.2cm x 5.1cmx 3.5cm anteverted with a combined endometrial thickness of 8.4mm. There is an IUD within the uterine cavity but it seems to be in the lower uterine segment. LEFT OVARY: 4.9 cmx2.8 cmx3.1cm with a volume of 21.6ml. The left ovary has multiple small peripheral follicles. There is cyst within the left ovary that has a ground-glass appearance measuring 2.4 cm x 2.4 cm x 2.1 cm. This could represent an endometrioma. RIGHT OVARY: 3.9 cmx 3.8 cmx2.5cm with a volume of 19ml. The right ovary appears polycystic with multiple peripheral follicles. Both ovaries are seen and appear polycystic. Doppler flow to both ovaries are seen. There is no fluid in the cul-de-sac. IMPRESSION: 1. Anteverted uterus normal in shape and size. The endometrium measures 8.4 mm. There is an IUD within the uterine cavity located in the lower uterine segment. 2. Both left and right ovaries are seen and appear polycystic. Within the left ovary there is a 2.4 cm cystic area that has a ground-glass appearance, possibly an endometrioma. 3. No fluid in the cul-de-sac. Dictated by: Feliciano Herrera MD 09/21/2024 10:40 Feliciano Herrera MD in [place] 09/21/2024 10:40
== END 2024-09-21 23:59 | disposition home or self-care (01) ==
LOC: RAD 07:01
PROVIDERS: PCP Obstetrics & Gynecology; Visit Provider Obstetrics & Gynecology
DX: Z30.431 Encounter for routine checking of intrauterine contraceptive device (principal); R10.2 Pelvic and perineal pain
CPT/HCPCS: 76830

== ENCOUNTER 2024-09-28 09:29 | Outpatient (CLI) | payer OTHER, SELFPAY ==
--- NOTE | 2024-09-28 09:29 | MM_ITS ---
PROCEDURE INFORMATION: Exam: Right Diagnostic Breast Tomosynthesis Exam date and time: 09/28/2024 9:14 AM Age: 34 years old Clinical indication: Right breast pain, pain is towards the right axilla. Patient had a prior breast ultrasound performed. TECHNIQUE: Imaging protocol: Right Diagnostic tomosynthesis and 2D mammography including computer-aided detection (CAD) when performed. Unilateral or bilateral exam. COMPARISON: No relevant prior studies available. FINDINGS: MAMMOGRAPHY: Breast composition: There are scattered areas of fibroglandular density. Breast mammogram findings: No stellate mass, architectural distortion, or suspicious microcalcifications to suggest malignancy. No skin thickening or axillary adenopathy. Specifically, no abnormality in the right breast to explain the cause of the patient's breast pain. IMPRESSION: No mammographic evidence of malignancy. No mammographic abnormality to correlate to the patient's breast pain. Clinical follow-up as needed is recommended. ASSESSMENT: BI-RADS Category 1: Negative.
== END 2024-09-28 23:59 | disposition home or self-care (01) ==
LOC: RAD 09:29
PROVIDERS: PCP Nurse Practitioner Family; Visit Provider Obstetrics & Gynecology
DX: N64.4 Mastodynia (principal)
CPT/HCPCS: 77061; 77065; G0279

== ENCOUNTER 2024-12-28 12:29 | Outpatient (CLI) | payer OTHER, SELFPAY ==
--- NOTE | 2024-12-28 12:31 | US_ITS ---
PROCEDURE: US TRANSVAGINAL CLINICAL INDICATION: 2 month Follow up ovarian Cyst COMPARISON: CT CT ABDOMEN PELVIS W CON from 02/24/2023 US US TRANSVAGINAL from 09/21/2024 FINDINGS: Transvaginal sonographic images of the pelvis were obtained. UTERUS: 7.4cm x 5.5cmx 3.7 cm with a combined endometrial thickness of 6mm. There is an IUD located within the cervix. Prior ultrasound head showed the IUD in the lower uterine segment and if this is the same ID it is shifted downwards. LEFT OVARY: 4.7 cmx3.9 cmx3.5cm with a volume of 33.4ml. There is a follicle measuring 1.7 cm x 2.1 cm x 2.6 cm. There are multiple small peripheral follicles giving the ovary a polycystic appearance. RIGHT OVARY: 3.3cmx 2.5 cmx2.1cm with a volume of 9.4ml. There are multiple peripheral follicles giving the ovary a polycystic appearance. Both ovaries are seen and appear polycystic. Doppler flow to both ovaries are seen. There is no fluid in the cul-de-sac. IMPRESSION: 1. Anteverted uterus normal in shape and size. The endometrium appears normal and measures 6 mm. 2. There is an IUD in the upper cervix. Previously the IUD was in the lower uterine segment. If this is the same IUD it has shifted downwards. See image 5. 3. Both ovaries are seen and appear polycystic. 4. No fluid in the cul-de-sac. Dictated by: Feliciano Herrera MD 12/28/2024 14:50 Feliciano Herrera MD in [place] 12/28/2024 14:50
== END 2024-12-28 23:59 | disposition home or self-care (01) ==
LOC: RAD 12:30
PROVIDERS: PCP Nurse Practitioner Family; Visit Provider Obstetrics & Gynecology
DX: E28.2 Polycystic ovarian syndrome (principal)
CPT/HCPCS: 76830

== ENCOUNTER 2025-03-23 08:55 | Outpatient (CLI) | payer OTHER, SELFPAY ==
--- NOTE | 2025-03-23 08:57 | XR_ITS ---
FINAL REPORT CLINICAL HISTORY: ankle pain COMPARISON: None FINDINGS: LEFT ANKLE Three views demonstrate orthopedic screws securing the distal tibia and fibula. There is no acute fracture or dislocation. The visualized joint spaces are normally aligned. The ankle mortise is intact. The soft tissues are unremarkable. IMPRESSION: Postsurgical changes without acute bony abnormality. Reviewed, Interpreted and Dictated by Quincy Damon MD Transcribed by Sarahi North Authenticated and [facility]
--- OUTSIDE RECORDS SUMMARY | 2025-03-23 08:57 | XMS_ITS ---
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 Name Role Phone Tessie HOWARDOlga Estefania Montenegro Unavailable Beti nicol Costa MD, Mady Unavailable [phone] Problems Includes: Active, inactive, and resolved Problems All Visits Onset Date Resolved Date Provider Condition S tatus Lower Back Pain 02/15/2024 Mady hernandez MD Active Last Documented On 4 3:20PM ; [facility], [facility] Plan of Treatment Instructions to patient Lose weight Last Documented On 4 3:22PM ; [facility], [facility] Assessments Includes: Assessments for all patient encounters Findings Encounter Date Overweight Physician Specified with Mady Costa MD 02/15/2024 Last Documented On 4 10:18AM ; [facility], [facility] Instructions Includes: Instructions for all patient encounters Instructions to patient Lose weight Last Documented On 4 3:22PM ; [facility], [facility] Medical Equipment - Implanted Devices Includes: Current and historical Devices No Medical Equipment Recorded Medications Includes: Current and historical Medications Current Medications (continue as prescribed) Norgestimate-Eth Estradiol 0.25-35 MG-MCG Oral Tablet 02/05/2024 Provider: Diagnosis: Last Documented On 4 3:22PM By Lina Stack ; [facility] Medications Administered Includes: Administered Medications in patient's chart No Administered Medications Recorded Results Includes: Results from 03/23/2024 through 03/23/2025 No Results Recorded For Specified Dates History of Present Illness History of Present Illness not supported for this document type No History of Present Illness Recorded Social History Description Last Updated Tobacco non-user 02/15/2024 Last Documented On 4 10:18AM ; [facility], [facility] Caffeine use 02/15/2024 Last Documented On 4 10:18AM ; [facility], [facility] No recent change in diet 02/15/2024 Last Documented On 4 10:18AM ; [facility], [facility] Not a current smoker. 02/15/2024 Last Documented On 4 10:18AM ; [facility], [facility] Not exercising regularly 02/15/2024 Last Documented On 4 10:18AM ; [facility], [facility] Not using alcohol 02/15/2024 Last Documented On 4 10:18AM ; [facility], [facility] Not using drugs 02/15/2024 Last Documented On 4 10:18AM ; [facility], [facility] Smoking Status Unknown Procedures and Surgical History Surgical History Last Updated History of appendectomy 02/15/2024 Last Documented On 4 10:18AM ; [facility], [facility] Past Surgical History: Ankle 02/15/2024 Last Documented On 4 10:18AM ; [facility], [facility] Medical History Includes: Medical History in patient's chart Description Last Updated Past medical history non-contributory Last Documented On 4 10:18AM ; [facility], [facility] Family History Includes: Family History in patient's chart Description Last Updated Diabetes mellitus 02/15/2024 Last Documented On 4 10:18AM ; [facility], [facility] Family history of systemic hypertension 02/15/2024 Last Documented On 4 10:18AM ; [facility], [facility] Stroke / Seizures 02/15/2024 Last Documented On 4 10:18AM ; [facility], [facility] Review of Systems Review of Systems not supported for this document type No Review of Systems Recorded Mental Status Description No anxiety Functional Status No Functional Status Recorded Physical Exam Physical Exam not supported for this document type No Physical Exam Recorded Allergies Includes: Active, inactive, and resolved Allergies No Known Allergies Insurance Includes: Active Insurance Policies Plan Name Member ID Group # Subscriber Relationship Effect janel Dates 1 - [facility] [id number] Jory Marielena Self Clinical Notes Includes: Signed Clinical Notes starting from 11/06/2022 No Clinical Notes Recorded
--- OUTSIDE RECORDS SUMMARY | 2025-03-23 08:57 | XMS_ITS | Clinical Summary ---
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 Name Role Phone Tessie HOWARDOlga Estefania Moni Unavailable Beti nicol Costa MD, Mady Unavailable [phone] Reason for Visit and Chief Complaint The Chief Complaint is: Low back pain Problems Includes: Problems addressed during this encounter and other active Problems Current Visit Onset Date Resolved Date Provider Nella sommers Status Lower Back Pain 02/15/2024 Mady hernandez MD Active Last Documented On 4 3:20PM ; [facility] Plan of Treatment Instructions to patient Lose weight Last Documented On 4 3:22PM ; [facility] Assessments Includes: Assessments from this encounter Findings - Overweight - Last Documented On 02/16/2024 10:18AM ; [facility], [facility] Instructions Includes: Instructions from this encounter Instructions to patient Lose weight Last Documented On 4 3:22PM ; [facility], [facility] Medical Equipment - Implanted Devices Includes: Current Devices No Medical Equipment Recorded Medications Includes: Medications discussed during this encounter and other current Medications Current Medications (continue as prescribed) Norgestimate-Eth Estradiol 0.25-35 MG-MCG Oral Tablet 02/05/2024 Provider: Diagnosis: Last Documented On 4 3:22PM By Lina Stack ; [facility], [facility] Medications Administered Includes: Administered Medications from this encounter No Administered Medications Recorded Vital Signs Includes: Vital Signs from this encounter Vital Name 02/15/2024 03:22P Height (in) 67 Weight (lb) 195 Body Mass Index 30.5 Body Surface Area 2 Note: HL Last Documented: On 02/15/2024 3:22PM ; [facility] Results Includes: Results discussed during this encounter No Results Recorded For Specified Dates History of Present Illness Includes: History of Present Illness from this encounter HPI Jory Peguero is a 34 year old female. - Symptoms Occassionally ibuprofen makes pain better Lifting and bending makes pain worse. - Allergy list reviewed - Medication list reviewed - Previous history of new onset pain Injury is not work related or an automotive accident - Patient pain level from 1-10: 6 -7 - Yes, previous treatment. - History of Physical Therapy @ [facility] - History of Home Exercise - History of Chiropractic @ [facility] Medications used for this condition: This is a 34-year-old female who is seeing me for the 1st time today. She is here today for evaluation of low back pain that radiates a bit into her right buttock and down her right leg. She has been seen by her primary care physician and done some physical therapy. She also apparently had some bilateral SI joint injections which provided some mild temporary relief. She is here today for further evaluation and to review a recent MRI scan. We have provided her a home exercise program today and she will start this daily. Social History Description Last Updated Tobacco non-user 02/15/2024 Last Documented On 4 10:18AM ; [facility] Caffeine use 02/15/2024 Last Documented On 4 10:18AM ; [facility] No recent change in diet 02/15/2024 Last Documented On 4 10:18AM ; [facility] Not a current smoker. 02/15/2024 Last Documented On 4 10:18AM ; [facility] Not exercising regularly 02/15/2024 Last Documented On 4 10:18AM ; [facility] Not using alcohol 02/15/2024 Last Documented On 4 10:18AM ; [facility] Not using drugs 02/15/2024 Last Documented On 4 10:18AM ; [facility] Smoking Status Unknown Procedures and Surgical History Includes: Procedures from this encounter Procedures Code Diagnosis Performing Provider Service L ocation Service Date use of tobacco assessment performed 1000F Last Documented On 4 3:22PM ; [facility], [facility] review of medications documented 1160F Last Documented On 4 3:22PM ; [facility], [facility] an X-ray was performed 12/02/2023 LSrai @ [facility] [id number] Last Documented On 4 3:31PM ; [facility], [facility] an MRI was performed 02/02/2024 LSrai @ [facility] [id number] Last Documented On 4 3:21PM ; [facility], [facility] Surgical History Last Updated History of appendectomy 02/15/2024 Last Documented On 4 10:18AM ; [facility], [facility] Past Surgical History: Ankle 02/15/2024 Last Documented On 4 10:18AM ; [facility], [facility] Medical History Includes: Medical History addressed during this encounter Description Last Updated Past medical history non-contributory Last Documented On 4 10:18AM ; [facility], [facility] Family History Includes: Family History addressed during this encounter Description Last Updated Diabetes mellitus 02/15/2024 Last Documented [facility] 4 10:18AM ; [facility] Family history of systemic hypertension 02/15/2024 Last Documented On 4 10:18AM ; [facility], [facility] Stroke / Seizures 02/15/2024 Last Documented On 4 10:18AM ; [facility], [facility] Review of Systems Includes: Review of Systems from this encounter Systemic: Not feeling tired, no recent weight loss, and no recent weight gain. Head: No headache and no sinus pain. Eyes: No vision problems and no Cataracts. Glasses/Contacts. No Glaucoma. Otolaryngeal: No hearing loss and no tinnitus. Cardiovascular: No chest pain or discomfort, no palpitations, no Hypertension, and no High Cholesterol. Pulmonary: No daytime asthma symptoms and no chronic cough. No wheezing. Gastrointestinal: No heartburn and no abdominal pain. No Indigestion, no Acid Reflux, no Peptic Ulcer, no GI Stomach Bleed, and no Ulcers. Endocrine: No hot flashes, no muscle weakness, no Diabetes, no Hypothyroid, and no Hyperthyroid. Hematologic: No easy bleeding, no tendency for easy bruising, and no Anemia. Musculoskeletal: No Arthritis. Lower back pain. No soft tissue swelling and no localized joint pain. Neurological: No dizziness, no convulsions, and no numbness. Psychological: No anxiety, no emotional lability, no depression, and no insomnia. Not crying for no reason. Skin: No dry skin. No Ulcers, no Scars, and no rash. Allergic and Immunologic: No complaint of seasonal allergic reaction. Mental Status Includes: Mental Status from this encounter Description No anxiety Functional Status Includes: Functional Status from this encounter No Functional Status Recorded Physical Exam Includes: Physical Exam from this encounter Allergies Includes: Active Allergies No Known Allergies Encounters Encounter Provider Location Date Check-In Time Check-Out Time Diagnosis Physician Specified Mady hernandez MD [facility] 02/15/20 3:18PM 3:57PM Overweight Insurance Includes: Active Insurance Policies Plan Name Member ID Group # Subscriber Relationship Effect janel Dates 1 - UMR [id number] Jory Peguero Self Clinical Notes Includes: Clinical Notes from this encounter * Progress note Date Encounter Last Documented by 02/15/2024 Physician Specified Last tonny cortes on 02/16/2024; 10:18 AM, Mady Costa MD; [facility], [facility] Active Problems & Conditions - Lower Back Pain Chief Complaint The Chief Complaint is: Low back pain. Referred Here Referred by Mairsol Randall CRNA. History of Present Illness Jory Peguero is a 34 year old female. - Symptoms Occassionally ibuprofen makes pain better Lifting and bending makes pain worse. - Allergy list reviewed - Medication list reviewed - Previous history of new onset pain Injury is not work related or an automotive accident - Patient pain level from 1-10: 6 -7 - Yes, previous treatment. - History of Physical Therapy @ [facility] - History of Home Exercise - History of Chiropractic @ [facility] Medications used for this condition: This is a 34-year-old female who is seeing me for the 1st time today. She is here today for evaluation of low back pain that radiates a bit into her right buttock and down her right leg. She has been seen by her primary care physician and done some physical therapy. She also apparently had some bilateral SI joint injections which provided some mild temporary relief. She is here today for further evaluation and to review a recent MRI scan. We have provided her a home exercise program today and she will start this daily. Current Medication - Norgestimate-Eth Estradiol 0.25-35 MG-MCG Oral Tablet take as directed 84 days, 0 refills Past Medical/Surgical History Past medical history non-contributory. Surgical: - Appendectomy - Past Surgical History: Ankle Social History Not a current smoker. Current diet: No recent change in diet. Caffeine use: Caffeine use. Tobacco use: Tobacco non-user. Alcohol: Not using alcohol. Drug Use: Not using drugs. Habits: Not exercising regularly. Allergies - No Known Allergies Family History Stroke / Seizures Diabetes mellitus Systemic hypertension Review Of Systems Systemic: Not feeling tired, no recent weight loss, and no recent weight gain. Head: No headache and no sinus pain. Eyes: No vision problems and no Cataracts. Glasses/Contacts. No Glaucoma. Otolaryngeal: No hearing loss and no tinnitus. Cardiovascular: No chest pain or discomfort, no palpitations, no Hypertension, and no High Cholesterol. Pulmonary: No daytime asthma symptoms and no chronic cough. No wheezing. Gastrointestinal: No heartburn and no abdominal pain. No Indigestion, no Acid Reflux, no Peptic Ulcer, no GI Stomach Bleed, and no Ulcers. Endocrine: No hot flashes, no muscle weakness, no Diabetes, no Hypothyroid, and no Hyperthyroid. Hematologic: No easy bleeding, no tendency for easy bruising, and no Anemia. Musculoskeletal: No Arthritis. Lower back pain. No soft tissue swelling and no localized joint pain. Neurological: No dizziness, no convulsions, and no numbness. Psychological: No anxiety, no emotional lability, no depression, and no insomnia. Not crying for no reason. Skin: No dry skin. No Ulcers, no Scars, and no rash. Allergic and Immunologic: No complaint of seasonal allergic reaction. Physical Findings - Vitals taken 02/15/2024 03:22 pm HL Height 67 in Weight 195 lbs Body Mass Index 30.5 kg/m2 Body Surface Area 2 m2 General: Alert and Oriented A&Ox3 Focused Musculoskeletal Exam of the Spine: Patient is able to ambulate in the room without assistive device No focal tenderness to palpation in the Lumbar Spine Motor HF KE AD EHL GS Right 5/5 5/5 5/5 5/5 5/5 Left 5/5 5/5 5/5 5/5 5/5 Sensation L2 L3 L4 L5 S1 Right 2 2 2 2 2 Left 2 2 2 2 2 Patellar reflex is 2+ bilaterally Achilles reflex is 2+ bilaterally No ankle clonus Symmetric, palpable posterior tibialis pulse bilaterally Tests X-ray lumbar spine. Four views of the lumbar spine from an outside center were reviewed by me today. There is no obvious fracture or spondylolisthesis. MRI lumbar spine. There is a annular tear in the L5-S1 disc with a very small disc protrusion that I think is contacting perhaps the right traversing S1 nerve root. User Defined 5 This is a 34-year-old female with a L5-S1 disc bulge and right lumbar radiculopathy associated with it. It was nice seeing Jory in the office today. I think that it would be very reasonable for her to get an L5-S1 epidural steroid injection. She is very much in favor of this plan. We will get her scheduled to have 1 in follow up to make sure it is helping her symptoms. Assessment - Overweight Previous Tests Imaging: X-Ray: An X-ray was performed 12/02/2023 [facility] cru[facility] @ [facility]. MRI Scan: An MRI was performed 02/02/2024 [facility] @ [facility]. Counseling/Education - Lose weight Practice Management Use of tobacco assessment performed Review of medications documented. Care Team - Estefania Kurtz APRN Notes This dictation was done with voice recognition software and may contain errors and omissions.
--- OUTSIDE RECORDS SUMMARY | 2025-03-23 08:57 | XMS_ITS ---
Care Plan - [facility], [facility] Created on: March 23, 2025 Jory Peguero : 1990 Sex: Female Author Organization [facility], [facility] Address [address] [place] [phone] Phone Care Team Providers Care Supervisor Publications Name Role Phone Estefania Kurtz APRN Unavailable Beti vailable Julissa MAN, [facility] Unavailable [phone]
== END 2025-03-23 23:59 | disposition home or self-care (01) ==
LOC: RAD 08:56
PROVIDERS: PCP Nurse Practitioner Family; Visit Provider Podiatrist
DX: M25.572 Pain in left ankle and joints of left foot (principal); Z98.890 Other specified postprocedural states
CPT/HCPCS: 73610

== ENCOUNTER 2025-07-07 06:57 | Outpatient (CLI) | payer OTHER, SELFPAY ==
[2025-07-07 07:36] LABS: Hematocrit 41.1 % (37.0-47.0); Hemoglobin 14.1 g/dL (12.2-16.2); Immature Granulocytes % 0.2 %; Mean Corpuscular HGB Conc 34.3 g/dL (31.8-35.4); Mean Corpuscular Hemoglobin 29.9 pg (27.0-31.2); Mean Corpuscular Volume 87.3 fl (81-99); Nucleated Red Blood Cells % 0 %; Platelet Count 206 K/mm3 (142-424); Red Blood Count 4.71 M/mm3 (4.20-5.40); Red Cell Distribution Width-SD 39.2 fL; White Blood Count 4.2 K/mm3 (4.8-10.8)
[2025-07-07 08:37] LABS: Alanine Aminotransferase 19 U/L (12-78); Albumin Level 4.5 g/dl (3.5-5.0); Albumin/Globulin Ratio 1.8 (1.1-1.8); Alkaline Phosphatase 41 U/L (38-126); Anion Gap 10.6 mEq/L (5-15); Aspartate Amino Transferase 32 U/L (14-36); Bilirubin,Total 0.7 mg/dl (0.2-1.3); Blood Urea Nitrogen 13 mg/dl (7-17); Calcium 8.8 mg/dl (8.4-10.2); Carbon Dioxide 22 mmol/L (22.0-30.0); Chloride 108 mmol/L (98-107); Cholesterol 208 mg/dl (140-200); Creatinine,Serum 0.70 mg/dl (0.52-1.04); Estimated Glomerular Filt Rate 95 ml/min (>60); GFR (African American) 115 ML/MIN (>60); Globulin 2.5 g/dL (1.3-3.2); Glucose 99 mg/dl (74-100); HDL Cholesterol 38 mg/dl (40-60); Potassium 4.6 mmoL/L (3.5-5.1); Sodium 136 mmol/L (136-145); Total Protein,Serum 7.0 g/dl (6.3-8.2); Triglycerides 99 mg/dl (30-150)
[2025-07-07 09:06] LABS: Thyroid Stimulating Hormone 0.91 uIU/mL (0.465-4.68)
[2025-07-07 09:25] LABS: Vitamin B12 247 pg/mL (239-931)
--- NOTE | 2025-07-07 09:48 | US_ITS ---
FINAL REPORT TECHNIQUE: Limited sonographic images of the thyroid were obtained. CLINICAL HISTORY: .FU THYROID NODULES COMPARISON: 12/30/2022 FINDINGS: Thyroid is normal in size with normal echotexture. In the right thyroid lobe are at least 3 lesions. The largest lesion is mixed cystic and solid measuring up to 14 mm, was 10 mm. In the left lobe of the thyroid is a benign cyst measuring 6 mm. A few other smaller cysts are identified. There is a single solid lesion in the posterior left lobe measuring 8 mm classified as TR 3. This was not evident on prior exam. IMPRESSION: Interval enlarging TR 3 lesion in the right lobe. Interval development of a subcentimeter TR 3 lesion in the left lobe. Other thyroid lesions are stable or completely benign in appearance. Recommend continued follow-up in 12 months. Reviewed, Interpreted and Dictated by Faina Martini MD Transcribed by Sally Arceo Authenticated and [facility]
== END 2025-07-07 23:59 | disposition home or self-care (01) ==
PROVIDERS: PCP Nurse Practitioner Family; Visit Provider Nurse Practitioner Family
DX: E78.1 Pure hyperglyceridemia (principal); R79.89 Other specified abnormal findings of blood chemistry; E53.8 Deficiency of other specified B group vitamins
CPT/HCPCS: 36415; 76536; 80053; 80061; 82533; 82607; 84443; 85025